=== PATIENT | male | born 1955 | race Caucasian/White ===

== ENCOUNTER → 2016-06-10 | Outpatient (CLI) | payer OTHER ==
[~2016-06-10] MED LIST: ALBUAER19 INH; BRVIN NEB; DOXY100T17 PO; FLUT0.0529 NAE; IBUP-1450 PO; IPRASOL34 INH; LINA1TAB6 PO; LORA-741 PO; LSX/40 PO; MOME50SP5 NAE; OXGN; POTA-327 PO; PRED10TA PO; ROFL1TAB5 PO; SIMV10TA2 PO; SPRIN/30 INH
--- NOTE | 2016-06-10 09:32 | DIAGNOSTIC IMAGING REPORT ---
SINGLE VIEW PELVIS; SINGLE VIEW RIGHT HIP CLINICAL HISTORY: Sacroiliitis. Left hip pain. FINDINGS: An AP view of the pelvis and an AP view of the left hip are obtained. Correlation is made with pelvic CT dated 02/10/2015. The skeletal structures are well mineralized. No fracture is identified in the hips or bony pelvis. Mild arthritic change is present in both hips, with mild joint space narrowing. Minimal bony overgrowth and sclerosis is noted along the acetabular roof. Small spurs are noted in the left femoral head. Mild degenerative sclerosis is seen in the sacroiliac joints and pubic symphysis. Small enthesophytes arise from the anterior superior iliac spine bilaterally. The overlying soft tissues are normal as visualized. There is a nonobstructed abdominal bowel gas pattern. Surgical clips and suture material are noted in the right lower quadrant. Vascular calcifications are present in the pelvis. IMPRESSION: Mild degenerative change as above with no acute bony abnormality seen in the hips or pelvis. Electronically signed by: Magan Agarwal M.D. 06/10/2016 9:31 AM Dictated Date/Time: 06/10/2016 9:28 AM
[2016-06-10 10:23] LABS: ALT/SGPT 34 U/L (12-78); AST/SGOT 19 U/L (15-37); BLOOD UREA NITROGEN 18 mg/dl (7-18); BUN/CREATININE RATIO 19.7 (10-20); CALCIUM 9.1 mg/dl (8.5-10.1); CARBON DIOXIDE 30 mmol/L (21-32); CHLORIDE 106 mmol/L (98-107); CHOLESTEROL 164 mg/dl (0-200); CREATININE 0.89 mg/dl (0.60-1.40); GLUCOSE 134 mg/dl (70-99); POTASSIUM 4.6 mmol/L (3.5-5.1); SODIUM 142 mmol/L (136-145)
[2016-06-10 10:24] LABS: ESTIMATED AVERAGE GLUCOSE 134 mg/dl; HA1C FLAG Normal (Normal)
[2016-06-10 10:34] LABS: CHOLESTEROL/HDL RATIO 3.9; HDL CHOLESTEROL 42 mg/dl; LDL CHOLESTEROL CALCULATED 98 mg/dl; THYROID STIMULATING HORMONE 0.604 uIu/ml (0.300-4.500); TRIGLYCERIDES 119 mg/dl (0-150); VERY LOW DENSITY LIPOPROT CALC 24 mg/dl
[2016-06-10 10:51] LABS: RATIO 32.4 mcg/mg (0-30.0)
== END | disposition home or self-care (01) ==
LOC: C.RAD1850 09:07
PROVIDERS: ATTEND Internal Medicine
DX: M46.1 Sacroiliitis, not elsewhere classified (principal); E11.9 Type 2 diabetes mellitus without complications; E78.5 Hyperlipidemia, unspecified

== ENCOUNTER → 2017-06-10 | Outpatient (CLI) | payer OTHER ==
--- NOTE | 2017-06-10 09:51 | DIAGNOSTIC IMAGING REPORT ---
RIGHT LOWER EXTREMITY VENOUS DOPPLER HISTORY: M79.89 Right leg swelling COMPARISON STUDY: None. FINDINGS: There is normal compressibility, flow, and augmentation within the right lower extremity deep venous system. IMPRESSION: No DVT within the right lower extremity Electronically signed by: Eliseo Ferrara M.D. 06/10/2017 9:49 AM Dictated Date/Time: 06/10/2017 9:44 AM
== END ==
LOC: C.ULTR 09:03
PROVIDERS: ATTEND Internal Medicine
DX: M79.89 Other specified soft tissue disorders (principal)

== ENCOUNTER → 2017-06-10 | Outpatient (CLI) | payer OTHER ==
--- NOTE | 2017-06-10 09:27 | DIAGNOSTIC IMAGING REPORT ---
RIGHT KNEE 3 VIEWS HISTORY: M25.469 Knee [id number] Pain and swelling of right kneerigh COMPARISON: None. FINDINGS: There is no fracture or dislocation. Prepatellar soft tissue swelling. No significant knee effusion. Tiny tricompartmental marginal osteophytes with mild cartilage space narrowing within the medial compartment. This is consistent with osteoarthritis. No radiopaque foreign bodies. IMPRESSION: 1. No fracture or dislocation within the right knee. 2. Prepatellar soft tissue swelling. Electronically signed by: Eliseo Ferrara M.D. 06/10/2017 9:26 AM Dictated Date/Time: 06/10/2017 9:25 AM
== END ==
LOC: C.RAD1850 08:37
PROVIDERS: ATTEND Internal Medicine
DX: M25.461 Effusion, right knee (principal)

== ENCOUNTER → 2017-07-14 | Outpatient (CLI) | payer OTHER ==
[2017-07-14 09:54] LABS: ALT/SGPT 32 U/L (12-78); AST/SGOT 11 U/L (15-37); BLOOD UREA NITROGEN 16 mg/dl (7-18); CALCIUM 8.9 mg/dl (8.5-10.1); CARBON DIOXIDE 32 mmol/L (21-32); CREATININE 0.98 mg/dl (0.60-1.40); GLUCOSE 261 mg/dl (70-99); POTASSIUM 4.5 mmol/L (3.5-5.1); SODIUM 136 mmol/L (136-145)
[2017-07-14 09:57] LABS: CHOLESTEROL 162 mg/dl (0-200); LDL CHOLESTEROL CALCULATED 77 mg/dl
[2017-07-14 10:08] LABS: HEMOGLOBIN A1C 9.8 % (4.5-5.6)
== END | disposition home or self-care (01) ==
LOC: C.LAB1850 08:07
PROVIDERS: ATTEND Internal Medicine
DX: E11.9 Type 2 diabetes mellitus without complications (principal); E78.5 Hyperlipidemia, unspecified

== ENCOUNTER → 2017-08-09 | Outpatient (CLI) | payer OTHER | END | disposition home or self-care (01) | LOC: C.LABSPEC 16:52 | PROVIDERS: ATTEND Surgery | DX: R19.09 Other intra-abdominal and pelvic swelling, mass and lump (principal) ==

== ENCOUNTER → 2017-08-09 | Outpatient (CLI) | payer OTHER | END | disposition home or self-care (01) | LOC: C.PATHSPEC 17:27 | PROVIDERS: ATTEND Surgery | DX: M79.3 Panniculitis, unspecified (principal) ==

== ENCOUNTER → 2017-09-13 | Outpatient (CLI) | payer OTHER | END | disposition home or self-care (01) | LOC: C.LABSPEC 16:47 | PROVIDERS: ATTEND Surgery | DX: A49.02 Methicillin resistant Staphylococcus aureus infection, unspecified site (principal) ==

== ENCOUNTER → 2017-11-17 | Outpatient (CLI) | payer OTHER ==
[2017-11-17 11:20] LABS: HEMOGLOBIN A1C 11.1 % (4.5-5.6)
[2017-11-17 11:34] LABS: BLOOD UREA NITROGEN 18 mg/dl (7-18); CALCIUM 9.6 mg/dl (8.5-10.1); CARBON DIOXIDE 34 mmol/L (21-32); GLUCOSE 331 mg/dl (70-99); POTASSIUM 5.2 mmol/L (3.5-5.1); SODIUM 134 mmol/L (136-145)
[2017-11-17 11:37] LABS: CREATININE RANDOM URINE 51.7 mg/dl
== END | disposition home or self-care (01) ==
LOC: C.LAB1850 08:57
PROVIDERS: ATTEND Internal Medicine Infectious Disease
DX: E11.9 Type 2 diabetes mellitus without complications (principal); A49.02 Methicillin resistant Staphylococcus aureus infection, unspecified site

== ENCOUNTER → 2017-12-11 | Outpatient (CLI) | payer OTHER ==
[~2017-12-11] MED LIST changes: +ALBU18002 INH; +CLB/200 PO; -FLUT0.0529 NAE; -IBUP-1450 PO; -IPRASOL34 INH; -MOME50SP5 NAE; -POTA-327 PO; -SPRIN/30 INH; +UMEC1AER INH
[2017-12-11 11:20] LABS: BASO % 0.3 %; BASO ABS # 0.02 K/uL (0-0.2); EOS % 1.9 %; EOS ABS # 0.11 K/uL (0-0.5); HEMATOCRIT 43.9 % (42-52); HEMOGLOBIN 15.1 g/dL (14.0-18.0); IG# 0.04 K/uL (0.00-0.02); LYMPH % 19.3 %; LYMPH ABS # 1.12 K/uL (1.2-3.4); MEAN CELL VOLUME 84.4 fL (80-100); MEAN CORPUSCULAR HGB CONC 34.4 g/dl (32-36); MEAN PLATELET VOLUME 10.4 fL (7.4-10.4); MONO % 13.1 %; MONO ABS # 0.76 K/uL (0.11-0.59); NEUT % 64.7 %; NEUT ABS # 3.76 K/uL (1.4-6.5); PLATELET COUNT 201 K/uL (130-400); RED CELL DISTRIBUTION WIDTH CV 12.8 % (11.5-14.5); RED CELL DISTRIBUTION WIDTH SD 38.8 fL (36.4-46.3); WHITE BLOOD COUNT 5.81 K/uL (4.8-10.8)
[2017-12-11 11:27] LABS: ALBUMIN 3.9 gm/dl (3.4-5.0); BLOOD UREA NITROGEN 12 mg/dl (7-18); CALCIUM 9.4 mg/dl (8.5-10.1); CARBON DIOXIDE 30 mmol/L (21-32); CREATININE 0.83 mg/dl (0.60-1.40); GLUCOSE 141 mg/dl (70-99); POTASSIUM 4.5 mmol/L (3.5-5.1); SODIUM 139 mmol/L (136-145)
[2017-12-11 11:35] LABS: PTT PATIENT 25.9 SECONDS (21.0-31.0)
[2017-12-11 11:36] LABS: HEMOGLOBIN A1C 10.5 % (4.5-5.6)
== END | disposition home or self-care (01) ==
LOC: C.CPL 10:08
PROVIDERS: ATTEND Orthopaedic Surgery
DX: Z01.810 Encounter for preprocedural cardiovascular examination (principal); Z01.812 Encounter for preprocedural laboratory examination

== ENCOUNTER 2018-11-01 11:19 | Inpatient (IN) ==
--- NOTE | 2018-10-03 08:33 | PAT Medication Instructions ---
Medication Instructions Date of Service October 03, 2018 Home Medications Medication Instructions Recorded tamsulosin 0.4 mg PO HS #30 cap 04/23/18 Anoro Ellipta 1 inh INHALATION QPM Brovana 2 ml INHALATION Q4H PRN Daliresp 500 mcg PO QPM albuterol sulfate [ProAir HFA] 2 puff INHALATION QID PRN albuterol sulfate [Ventolin HFA] 2 puff INHALATION BID PRN lorazepam [Ativan] 0.5 mg PO BID PRN simvastatin [Zocor] 10 mg PO QPM Jentadueto 1 tab PO BID tamsulosin 0.4 mg PO HS hydrocodone-acetaminophen 1 tab PO Q8H PRN DO NOT take the morning of surgery Jentadueto 1 tab PO BID Take morning of surgery With a small sip of water, OTHERWISE NOTHING TO EAT OR DRINK AFTER MIDNIGHT: Brovana 2 ml INHALATION Q4H PRN (if needed) albuterol sulfate [ProAir HFA] 2 puff INHALATION QID PRN (if needed, and bring with you to the hospital) albuterol sulfate [Ventolin HFA] 2 puff INHALATION BID PRN (if needed) lorazepam [Ativan] 0.5 mg PO BID PRN (if needed) hydrocodone-acetaminophen 1 tab PO Q8H PRN (if needed, may be taken up to four hours before surgery) Take evening before surgery Anoro Ellipta 1 inh INHALATION QPM Brovana 2 ml INHALATION Q4H PRN (if needed) Daliresp 500 mcg PO QPM albuterol sulfate [ProAir HFA] 2 puff INHALATION QID PRN (if needed) albuterol sulfate [Ventolin HFA] 2 puff INHALATION BID PRN (if needed) lorazepam [Ativan] 0.5 mg PO BID PRN (if needed) simvastatin [Zocor] 10 mg PO QPM Jentadueto 1 tab PO BID tamsulosin 0.4 mg PO HS hydrocodone-acetaminophen 1 tab PO Q8H PRN (if needed) Other Notes If you have any questions please call us at [phone] or [phone] or [phone] or [phone]
--- NOTE | 2018-10-03 11:32 | Anesthesiology Consultation ---
Date of Service October 03, 2018 Assessment & Plan (1) Encounter for pre-operative examination: Cardio clearance 10/10/18 = "Patient without active cardiac symptoms. No recent cardiac related hospitalizations. He notes no decline in exercise tolerance or overall functional capacity, actually reporting improved exercise tolerance since March. EKG today reveals normal sinus rhythm at 75 bpm. Options discussed. Risks explained. I see no overt cardiac contraindications to surgery as scheduled." Pulmonology Clearance 10/10/18 = Per [place] Respiratory Failure Index, he has a 0.5 to 4.2% risk for respiratory failure. Per [place] Perioperative Cardiac Risk, he has a 0.56% risk for SD or cardiac arrest. Post operative measures to promote air exchange, including cough, deep breathing techniques and getting out of bed are recommended. Nebs should be offered around the clock along with standard pulmonary measures. Chart Review Chart Review: Acceptable Risk for Surgery and Patient seen in Pre Admission Testing Teaching & Discussion Instructed NPO after midnight before surgery, except medications with 15 cc of water. Medication instructions provided according to the PAT guidelines. History Surgery Operation Date: 11/01/18 07:00 Proposed Procedures p Right Anterior Total Hip Arthroplasty - Eben Sommers DO Height/Weight Height: 5 ft 11.5 in Weight: 82.4 kg Allergies Allergy/AdvReac Type Severity Reaction Status Date / Time No Known Allergies Allergy Verified 09/26/18 11:33 Medications Home Medications Medication Instructions Recorded Confirmed Last Taken Anoro Ellipta 1 inh INHALATION QPM 12/12/17 09/26/18 04/10/18 Brovana 2 ml INHALATION Q4H PRN 12/12/17 09/26/18 04/11/18 18:00 Daliresp 500 mcg PO QPM 12/12/17 09/26/18 04/10/18 09:00 albuterol sulfate [ProAir HFA] 2 puff INHALATION QID PRN 12/12/17 09/26/18 04/11/18 18:00 albuterol sulfate [Ventolin HFA] 2 puff INHALATION BID PRN 12/12/17 09/26/18 04/11/18 18:00 lorazepam [Ativan] 0.5 mg PO BID PRN 12/12/17 09/26/18 04/10/18 simvastatin [Zocor] 10 mg PO QPM 0809/26/18 04/10/18 18:00 Jentadueto 1 tab PO BID 03/13/18 09/26/18 04/10/18 09:00 tamsulosin 0.4 mg PO HS #30 cap 04/23/18 09/26/18 Unknown hydrocodone 5 mg-acetaminophen 325 1 tab PO Q8H PRN #30 tab 10/03/18 Unknown mg tablet Past Medical History Medical History COPD (chronic obstructive pulmonary disease) (Chronic) Emphysema. No recent exacerbations; stable. Anxiety Asthma No recent exacerbations; stable. BPH (benign prostatic hyperplasia) Chronic back pain Chronic respiratory failure Diabetes mellitus, type 2 NIDDM. Patient was initially scheduled for ESTELITA for 01/2018, but was Cx due to A1C of 10.5%. Medical regimen started, A1C reduced to 6.2%. H/O malignant neoplasm of colon s/p hemicolectomy [facility] 2017 Hyperlipidemia On home oxygen therapy 2L O2 daytime plus 3L O2 HS-NC Osteoarthritis Exercise / Class Metabolic Activity III < 4 Walking/Shop/Light housework (Denies SOB or CP with slow walking, does walk 1.5 miles per day on 2L O2 via NC) Past Family History Family History Grandfather Family history of diabetes mellitus paternal Past Surgical History Surgical History History of appendectomy History of arthroscopy LEFT KNEE History of bone graft STERNUM, 2/2 traumatic injury History of colonoscopy W/ POLYPECTOMY Hx of right hemicolectomy Past Anesthesia History No Hx of Anesthesia Complications and No Family Hx of Anesthesia Complications History of PONV No Hx of PONV and No Hx of Motion Sickness Social History Smoking Status: Former smoker tobacco type: cigarettes Do You Dip or Chew Tobacco: No Smoking End Date: QUIT 2009, h/o 2ppd Hx Alcohol Use: No Hx Substance Use: No Review of Systems Pt denies any recent chest pain, shortness of breath above baseline, palpitations, cough, fever or URI. Physical Exam Vital Signs BP: 136/76 P: 75bpm SPO2: 97% on 2L O2 via NC T: 97.9 F R: 16 ENMT Mouth: + dentures and + edentulous Thyromental Distance: < 3.5 Finger Breadths (3) Mallampati Class: I Neck normal visual inspection; neck extension not limited Respiratory Auscultation: + diminished lung sounds (B/L, R >L) Cardiovascular Rate/Rhythm: regular rate and regular rhythm Heart Sounds: no murmur Vessels: no carotid bruit Extremities: no edema Very distant heart sounds. Testing Laboratory Results 10/03/18 11:08 10/03/18 11:08 10/03/18 10/03/18 10/03/18 11:08 11:08 11:08 PT 10.3 INR 1.0 APTT 26.9 Hemoglobin A1c 6.3 H Urine Color Urine Appearance Urine pH Ur Specific [place] Urine Protein Urine Glucose (UA) Urine Ketones Urine Nitrite Ur Leukocyte Esterase Blood Type B Positive Antibody Screen NEGATIVE 10/03/18 Unknown PT INR APTT Hemoglobin A1c Urine Color Yellow Urine Appearance Clear Urine pH 5.0 Ur Specific [place] 1.015 Urine Protein Negative Urine Glucose (UA) Negative Urine Ketones Negative Urine Nitrite Negative Ur Leukocyte Esterase Negative Blood Type Antibody Screen Electrocardiogram Date: 04/22/18 Findings: + ST @ (113) Otherwise normal. *EKG done post-op for hemicolectomy; HR 75bpm at PAT. Echocardiogram Date: 04/20/17 EF: 60-64% Examination is adequate to evaluate the referral indication. The left ventricular cavity size is normal. Moderate concentric LVH. Left ventricular wall motion is normal. No significant valvular disease is present. No evidence of pulmonary hypertension. The inferior vena cava is normal sized. Stress Test Date: 12/07/17 Type: DSE Resting EF: 55-59% Stress echo negative for inducible ischemia. Mild concentric LVH. Grade 1 diastolic dysfunction. No significant valvular heart disease. Normal pulmonary pressures are suggested by 2D echo findings. Pulmonary Function Test Date: 01/23/18 Spirometry revealed very severe obstruction by ATS criteria.Note : If this patient has a clinical diagnosis of COPD, disease would be very severe by GOLD criteria. FVC has decreased and is likely from obstruction but restriction on top of obstruction could not rule out as there was no recorded lung volumes. Compared to the prior study on 10/2013, the FEV1 and FVC have decreased. Other Testing Chest CT 03/30/18 FINDINGS: The lungs are clear. The mediastinal vascular structures are within normal limits. No mediastinal or hilar lymphadenopathy. No pleural effusion or pneumothorax. Limited views of the upper abdomen demonstrate a normal liver and spleen. IMPRESSION: No significant abnormality identified within the chest. No change from the prior studies. No significant adenopathy.
[2018-10-03 12:24] LABS: Basophils # (auto) 0.03 K/uL (0-0.2); Basophils % (auto) 0.5 %; Eosinophils # (auto) 0.18 K/uL (0-0.5); Eosinophils % (auto) 2.8 %; Hematocrit (blood only) 44.8 % (42-52); Hemoglobin 15.1 g/dL (14.0-18.0); Immature Granulocytes # (auto) 0.03 K/uL (0.00-0.02); Immature Granulocytes % (auto) 0.5 %; Lymphocytes # (auto) 1.27 K/uL (1.2-3.4); Lymphocytes % (auto) 19.4 %; Mean Corpuscular Hgb Conc 33.7 g/dL (32-36); Mean Corpuscular Volume 83.3 fL (80-100); Mean Platelet Volume 10.4 fL (7.4-10.4); Monocytes # (auto) 0.77 K/uL (0.11-0.59); Monocytes % (auto) 11.8 %; Neutrophils # (auto) 4.26 K/uL (1.4-6.5); Platelet Count 194 K/uL (130-400); RDW Coefficient of Variation 13.7 % (11.5-14.5); RDW Standard Deviation 41.2 fL (36.4-46.3); Red Blood Count 5.38 M/uL (4.7-6.1); White Blood Count 6.54 K/uL (4.8-10.8)
[2018-10-03 12:32] LABS: Albumin Level 4.1 gm/dl (3.4-5.0); BUN Creatinine Ratio 13.2 (10-20); Calcium 9.8 mg/dl (8.5-10.1); Est GFR (African American) 109.8; Est GFR (Non-African American) 94.8; Potassium 4.7 mmol/L (3.5-5.1)
[2018-10-03 12:35] LABS: Partial Thromboplastin Time 26.9 Seconds (21.0-31.0); Prothrombin Time 10.3 Seconds (9.0-12.0)
[2018-10-03 12:43] LABS: Estimated Average Glucose 134 mg/dl; Hemoglobin A1C 6.3 % (4.5-5.6)
[2018-10-03 12:47] LABS: Appearance Urine Clear (Clear); Bilirubin Urine Negative (Negative); Blood Urine Negative (Negative); Color Urine Yellow; Glucose Urine UA Negative (Negative); Ketones Urine Negative (Negative); Leukocyte Esterase Urine Negative (Negative); Nitrite Urine Negative (Negative); Protein Urine Negative (Negative); Specific Gravity Urine 1.015 (1.000-1.030); Urobilinogen Urine Negative (Negative)
--- NOTE | 2018-10-31 20:30 | History & Physical Report ---
Date of Service October 31, 2018 Assessment & Plan (1) Degenerative joint disease of right hip: I have indicated the patient for right anterior total hip replacement. The risks, benefits and complications of surgery were explained to the patient which include but not limited to infection, acute blood loss, DVT/PE, injury to nerves, vessels, bone, soft tissue, arthrofibrosis, chronic pain, failure of the prosthesis, hip dislocation, leg length discrepancy, need for additional surgery, cardiac and pulmonary events and . The patient wished to proceed with surgery and informed consent was obtained at this time. We will plan for Lovenox post-operatively for DVT prophylaxis. Upon discharge the patient will be discharged home with home health services. Appropriate clearances by PCP, cardio, pulm, onc, uro, recs by gen surg were obtained. History of Present Illness Chief Complaint: Right hip pain/djd Primary Care Provider: Frank Dutta MD The patient is a 63 year old male who presents with complaints of severe right hip pain and DJD. The patient has failed outpatient conservative treatments to this point which included NSAIDs, corticosteroid injection, home exercise/walking program. The patient's pain and limited function have progressed to the point where they severely hinder their activities of daily living and they no longer tolerate exercise programs. They are requesting to proceed with total hip replacement surgery. Allergies Allergy/AdvReac Type Severity Reaction Status Date / Time No Known Drug Allergies Allergy Verified 11/01/18 11:56 Home Medications Home Medications Medication Instructions Recorded Confirmed Type Anoro Ellipta 1 inh INHALATION QPM 12/12/17 11/01/18 History Brovana 2 ml INHALATION Q4H PRN 12/12/17 11/01/18 History Daliresp 500 mcg PO QPM 12/12/17 11/01/18 History albuterol sulfate [ProAir HFA] 2 puff INHALATION QID PRN 12/12/17 11/01/18 History albuterol sulfate [Ventolin HFA] 2 puff INHALATION BID PRN 12/12/17 11/01/18 History lorazepam [Ativan] 0.5 mg PO BID PRN 12/12/17 11/01/18 History simvastatin [Zocor] 10 mg PO QPM 12/12/17 11/01/18 History Jentadueto 1 tab PO BID 03/13/18 11/01/18 History tamsulosin 0.4 mg PO HS #30 cap 04/23/18 11/01/18 Rx hydrocodone 5 mg-acetaminophen 325 1 tab PO Q8H PRN #30 tab 10/24/18 11/01/18 Rx mg tablet Past Med/Surg History Medical History COPD (chronic obstructive pulmonary disease) (Chronic) Emphysema. No recent exacerbations; stable. BPH (benign prostatic hyperplasia) Anxiety Asthma No recent exacerbations; stable. Chronic back pain Chronic respiratory failure Diabetes mellitus, type 2 NIDDM. Patient was initially scheduled for ESTELITA for 01/2018, but was Cx due to A1C of 10.5%. Medical regimen started, A1C reduced to 6.2%. H/O malignant neoplasm of colon s/p hemicolectomy [facility] 2017 Hyperlipidemia On home oxygen therapy 2L O2 daytime plus 3L O2 HS-NC Osteoarthritis Surgical History History of appendectomy History of arthroscopy LEFT KNEE History of bone graft STERNUM, 2/2 traumatic injury History of colonoscopy W/ POLYPECTOMY Hx of right hemicolectomy Family History Grandfather Family history of diabetes mellitus paternal Social History Preferred Language: Czech Communication Ability: Effective Visual Impairment: No Limitations Etymology Professor Required: No Beliefs That Will Affect Care: None marital status: Current Living Situation: Spouse Other Information That Helps Us Care for You: No Feels Safe at Home: Yes Safety Concerns: Feels Safe At This Time Smoking Status: Former smoker Tobacco Type: cigarettes Do You Dip or Chew Tobacco: No Smoking End Date: QUIT 2009, h/o 2ppd Second Hand Exposure: No Hx Alcohol Use: No Hx Substance Use: No Review of Systems Review of Systems: All systems reviewed & are unremarkable except as noted in HPI & below Constitutional: as per Subjective / HPI Physical Exam Physical Exam: RLE NVSI +EHL/FHL/TA/GS SILT grossly, +2 DP pulse, compartments soft NT, limited painful ROM, antalgic gait Constitutional: WD/WN, vitals as above Eyes: PERRL, conjunctivae normal, anicteric sclerae ENMT: external ear and nose normal, oropharynx normal Neck: trachea midline, no thyromegaly Respiratory: normal respiratory effort, lungs clear to auscultation Auscultation: lungs clear to auscultation bilaterally and + diminished lung sounds Cardiovascular: RRR, no murmur, no edema Gastrointestinal (Abdomen): normal bowel sounds, soft, nontender, no hepatosplenomegaly Musculoskeletal: no cyanosis or clubbing, extremities motor strength 5/5 Skin: no rashes, warm and dry Neurologic: patellar DTR's 2+ bilat, sensation intact Psychiatric: A+Ox3, euthymic affect Lymphatic: no cervical or axillary lymphadenopathy Results & Data Diagnostic Findings Multiple views of the hip demonstrates severe DJD with complete loss of the joint space. +osteophytes, +sclerosis, +subchondral cysts.
[~2018-11-01 11:19] MED LIST changes: +ACETAMINOPHEN 500 MG TAB PO SCH; -ALBU18002 INH; -ALBUAER19 INH; -BRVIN NEB; +BUPIVACAINE 0.5 % 5 MG/1 ML PF 10ML VIAL ONE; +CEFAZOLIN 2000MG 2,000 MG/15 ML SYR IV SCH; -CLB/200 PO; +CeleBREX 200 MG CAP PO SCH; -DOXY100T17 PO; +FAMOTIDINE 20 MG TAB PO SCH; +GABAPENTIN 600 MG DOSE PO SCH; +LIDOCAINE HCL 2% 2 ML VIAL/AMP(20MG/ML) INFIL ONE; -LINA1TAB6 PO; -LORA-741 PO; +LR 500ML BOLUS, THEN 15ML/HR IV SCH; -LSX/40 PO; +METOCLOPRAMIDE HCL 10 MG TABLET PO SCH; +MIDAZOLAM HCL 1 MG/ML 2ML VIAL ONE; +ONDANSETRON INJ 2 MG/ML 2 ML VIAL ONE; -OXGN; -PRED10TA PO; +PROPOFOL IV EMULSION 10 MG/ML 20 ML VIAL IV ONE; -ROFL1TAB5 PO; +ROPIVACAINE 0.5% HCL/PF 150 MG, BUPIVACAINE 0.5% MPF 30 ML, EPINEPHrine 30MG/30ML (OR U... INFIL SCH; -SIMV10TA2 PO; +TRANEXAMIC ACID 1,000 MG **IV Intra-op IV SCH; +TRANEXAMIC ACID 1,000 MG **IV Pre-op IV SCH; -UMEC1AER INH; +dexAMETHasone 4 MG TAB PO SCH; +fentaNYL citrate 100 MCG/2 ML VIAL ONE
[2018-11-01] MEDS ORDERED: BACITRACIN INJ 50,000 UNIT VIAL ONE (12:29)
[2018-11-01] MEDS ORDERED: ORTHO JOINT ANESTHETIC ONE (12:29)
--- NOTE | 2018-11-01 12:36 | Anesthesiology Consultation ---
Date of Service November 01, 2018 Assessment & Plan Chart Review Chart Review: Acceptable Risk for Surgery Consults Requested none History Surgery Operation Date: 11/01/18 13:30 Proposed Procedures p Right Anterior Total Hip Arthroplasty - Eben Sommers DO Height/Weight Height: 5 ft 11.5 in Weight: 80.104 kg Allergies Allergy/AdvReac Type Severity Reaction Status Date / Time No Known Drug Allergies Allergy Verified 11/01/18 11:56 Medications Home Medications Medication Instructions Recorded Confirmed Last Taken Anoro Ellipta 1 inh INHALATION QPM 12/12/17 11/01/18 10/31/18 13:00 Brovana 2 ml INHALATION Q4H PRN 12/12/17 11/01/18 10/31/18 16:00 Daliresp 500 mcg PO QPM 12/12/17 11/01/18 10/31/18 19:00 albuterol sulfate [ProAir HFA] 2 puff INHALATION QID PRN 12/12/17 11/01/18 10/31/18 16:00 albuterol sulfate [Ventolin HFA] 2 puff INHALATION BID PRN 12/12/17 11/01/18 10/31/18 16:00 lorazepam [Ativan] 0.5 mg PO BID PRN 12/12/17 11/01/18 10/31/18 19:00 simvastatin [Zocor] 10 mg PO QPM 12/12/17 11/01/18 10/31/18 19:00 Jentadueto 1 tab PO BID 03/13/18 11/01/18 10/31/18 19:00 tamsulosin 0.4 mg PO HS #30 cap 04/23/18 11/01/18 10/31/18 19:00 hydrocodone 5 mg-acetaminophen 325 1 tab PO Q8H PRN #30 tab 10/24/18 11/01/18 Unknown mg tablet Active Medications Generic Name Dose Route Start Last Admin Trade Name Lisa PRN Reason Stop Dose Admin Acetaminophen 1,000 mg 11/01/18 06:00 11/01/18 12:16 Tylenol PO 11/01/18 15:00 1,000 mg PREOP ADINA Administration Celecoxib 200 mg 11/01/18 06:00 11/01/18 12:17 Celebrex PO 11/01/18 15:00 200 mg PREOP ADINA Administration Dexamethasone 8 mg 11/01/18 06:00 11/01/18 12:16 Decadron PO 11/01/18 15:00 8 mg PREOP ADINA Administration Famotidine 20 mg 11/01/18 06:00 11/01/18 12:17 Pepcid PO 11/01/18 15:00 20 mg PREOP ADINA Administration Gabapentin 600 mg 11/01/18 06:00 11/01/18 12:16 Neurontin PO 11/01/18 15:00 600 mg PREOP ADINA Administration Lactated Ringer's 1,000 mls @ 15 mls/hr 11/01/18 06:00 11/01/18 12:20 Lr IV 11/01/18 18:00 15 mls/hr .Q24H ADINA Infusion Metoclopramide HCl 10 mg 11/01/18 06:00 11/01/18 12:17 Reglan PO 11/01/18 15:00 10 mg PREOP ADINA Administration Past Medical History Medical History COPD (chronic obstructive pulmonary disease) (Chronic) Emphysema. No recent exacerbations; stable. BPH (benign prostatic hyperplasia) Anxiety Asthma No recent exacerbations; stable. Chronic back pain Chronic respiratory failure Diabetes mellitus, type 2 NIDDM. Patient was initially scheduled for ESTELITA for 01/2018, but was Cx due to A1C of 10.5%. Medical regimen started, A1C reduced to 6.2%. H/O malignant neoplasm of colon s/p hemicolectomy [facility] 2017 Hyperlipidemia On home oxygen therapy 2L O2 daytime plus 3L O2 HS-NC Osteoarthritis Past Family History Family History Grandfather Family history of diabetes mellitus paternal Past Surgical History Surgical History History of appendectomy History of arthroscopy LEFT KNEE History of bone graft STERNUM, 2/2 traumatic injury History of colonoscopy W/ POLYPECTOMY Hx of right hemicolectomy Social History Smoking Status: Former smoker tobacco type: cigarettes Do You Dip or Chew Tobacco: No Smoking End Date: QUIT 2009, h/o 2ppd Hx Alcohol Use: No Hx Substance Use: No substance use type: does not use Physical Exam Vital Signs Last Vital Signs Temp 36.5 C 11/01/18 12:00 Pulse 91 H 11/01/18 12:00 Resp 20 11/01/18 12:00 BP 152/82 H 11/01/18 12:00 Pulse Ox 97 11/01/18 12:00 Testing Laboratory Results 10/03/18 11:08 10/03/18 11:08 PT 10.3 Seconds (9.0-12.0) 10/03/18 11:08 INR 1.0 (0.9-1.1) 10/03/18 11:08 APTT 26.9 Seconds (21.0-31.0) 10/03/18 11:08 Hemoglobin A1c 6.3 % (4.5-5.6) H 10/03/18 11:08 Urine Color Yellow 10/03/18 Unknown Urine Appearance Clear (Clear) 10/03/18 Unknown Urine pH 5.0 (4.5-7.5) 10/03/18 Unknown Ur Specific [place] 1.015 (1.000-1.030) 10/03/18 Unknown Urine Protein Negative (Negative) 10/03/18 Unknown Urine Glucose (UA) Negative (Negative) 10/03/18 Unknown Urine Ketones Negative (Negative) 10/03/18 Unknown Urine Nitrite Negative (Negative) 10/03/18 Unknown Ur Leukocyte Esterase Negative (Negative) 10/03/18 Unknown Blood Type B Positive 10/03/18 11:08 Antibody Screen NEGATIVE 10/03/18 11:08 10/03/18 Unknown Urine Culture - Final Urine,Clean Catch No growth - less than 1,000 colonies/mL. 11/01/18 12:02 POC Glucose 111 H
[2018-11-01] MEDS ORDERED: ePHEDrine sulfate 50 MG/ML AMP IV PRN (12:38)
[2018-11-01] MEDS ORDERED: ACETAMINOPHEN 1,000 MG/100 ML VIAL IV ONE (12:38)
[2018-11-01] MEDS ORDERED: ATROPINE SULFATE 0.1 MG/ML 10ML SYR IV PRN (12:38)
[2018-11-01] MEDS ORDERED: fentaNYL citrate 100 MCG/2 ML VIAL IV PRN (12:38)
[2018-11-01] MEDS ORDERED: HYDROmorphone INJ 1 MG/ML SYRINGE IV PRN (12:38)
--- NOTE | 2018-11-01 12:38 | History & Physical Bridge Note ---
Date of Service November 01, 2018 History & Physical Bridge Note I have examined the patient, reviewed the History & Physical and in the interval since the performance of the History & Physical I have noted the following changes of clinical significance: no changes noted
[2018-11-01] MEDS ORDERED: ePHEDrine sulfate 50 MG/ML SYR ONE (13:46)
[2018-11-01] MEDS ORDERED: PHENYLEPHRINE HCL 10 MG/ML VIAL ONE (13:46)
[2018-11-01] MEDS ORDERED: PHENYLEPHRINE 100MCG/ML 5ML SYR ONE (13:46)
[2018-11-01] MEDS ORDERED: ESMOLOL HCL INJ 10 MG/ML 10ML VIAL IV ONE (13:55)
--- NOTE | 2018-11-01 14:26 | Post Operative Brief Note ---
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 I was immediately available: during the entire case. Back up surgeon: was not required during procedure.
--- NOTE | 2018-11-01 14:36 | Fluoroscopy Report ---
FL hip RT 1V HISTORY: 63 years-old Male RT ANTERIOR HIP right hip total joint arthroplasty COMPARISON: None available TECHNIQUE: 2 spot fluoroscopic images of the right hip were obtained utilizing 56.3 seconds fluorosco py time FINDINGS: Right hip total joint arthroplasty appears to be in satisfactory positioning. No acute fracture or re tained foreign body identified. Moderate to severe left hip osteoarthritis. IMPRESSION: Fluoroscopic assistance as above. Please see operative report for further details. The above report was generated using voice recognition software. It may contain grammatical, syntax o r spelling errors. Electronically signed by: Ray Gant M.D. 11/01/2018 2:35 PM
--- NOTE | 2018-11-01 15:20 | Anesthesiology Progress Note ---
Date of Service November 01, 2018 Anesthesia Post Procedure Vital Signs Vital Signs: Temp Pulse Pulse Resp BP Pulse Ox 11/01/18 15:15 36.7 C 90 20 106/68 98 11/01/18 15:05 97 H 19 122/76 96 11/01/18 14:58 36.2 C L 99 H 12 117/68 94 11/01/18 12:00 36.5 C 91 H 20 152/82 H 97 Pain Intensity Right Hip: Pain Intensity: 5 Transfer of Care Handoff Completed per policy Notes Mental Status: alert / awake / arousable and participated in evaluation Patient Amnestic to Procedure: Yes Nausea / Vomiting: adequately controlled Pain: adequately controlled Airway Patency, RR, SpO2: stable & adequate BP & HR: stable & adequate Hydration State: stable & adequate Neuraxial Anesthesia: was administered and sensory block is resolving Anesthetic Complications: no major complications apparent
--- NOTE | 2018-11-01 15:24 | XRay Report ---
AP PELVIS, CROSSTABLE LATERAL RIGHT HIP History: Right total hip arthroplasty. Degenerative arthritis. Postop. FINDINGS: The patient is status post a right total hip arthroplasty. The hardware is intact. No fract ure or dislocation. Moderate left hip osteoarthritis.. IMPRESSION: Right total hip arthroplasty. No evidence for hardware complication Electronically signed by: Eliseo Ferrara M.D. 11/01/2018 3:22 PM
[2018-11-01] MEDS ORDERED: NALOXONE HCL 0.4 MG/1 ML VIAL/CARP IV PRN (15:37)
[2018-11-01] MEDS ORDERED: ALBUTEROL HFA 8 GM INHALER INH PRN ×2 (15:37→16:00)
[2018-11-01] MEDS ORDERED: LORazepam 0.5 MG TAB PO PRN (15:37)
[2018-11-01] MEDS ORDERED: MAGNESIUM HYDROXIDE SUSP 30 ML UDC PO PRN (15:37)
[2018-11-01] MEDS ORDERED: BISACODYL 10 MG SUPP PR PRN (15:37)
[2018-11-01] MEDS ORDERED: METOCLOPRAMIDE HCL INJ 5 MG/ML 2 ML VIAL IV PRN (15:37)
[2018-11-01] MEDS ORDERED: ONDANSETRON INJ 2 MG/ML 2 ML VIAL IV PRN (15:37)
[2018-11-01] MEDS ORDERED: PHARMACY GLYCEMIC MGMT CONSULT PRN (15:37)
[2018-11-01] MEDS ORDERED: CARBOHYDRATES FOR HYPOGLYCEMIA PO PRN (16:00)
[2018-11-01] MEDS ORDERED: GLUCOSE 40% GEL 15 GM TUBE PO PRN (16:00)
[2018-11-01] MEDS ORDERED: GLUCOSE 10 TABS/TUBE PO PRN (16:00)
[2018-11-01] MEDS ORDERED: DEXTROSE 50% 50 ML SYRINGE IV PRN (16:00)
[2018-11-01] MEDS ORDERED: GLUCAGON FOR INJ 1 MG VIAL IM PRN (16:00)
[2018-11-01] MEDS ORDERED: INSULIN ASPART 100 UNITS/ML 3 ML PEN SC SCH (16:30)
[2018-11-01] MEDS ORDERED: NovoLIN-N (NPH) PER UNIT CHARGE SQ ONE (16:30)
[2018-11-01] MEDS: OXYCODONE HCL IR 5 MG TAB (IMMEDIATE RELEASE) PO PRN ×2 (16:50→21:01)
--- NOTE | 2018-11-01 18:14 | Orthopedic Progress Note ---
Date of Service November 01, 2018 Assessment & Plan (1) Degenerative joint disease of right hip: s/p Right anterior ESTELITA -ancef x 24 -DVT ppx: SCDs, TEDs, Lovenox daily -WBAT RLE -PT/OT -PO XR demonstrtes a well aligned well fixed prosthesis without fracture/dislocation -am labs -DC planning - home with HH Subjective Post Operative Progress Note Patient seen in PACU, comfortable, denies complaints, pain well controlled, no acute issues. Review of Systems Constitutional: as per Subjective / HPI Physical Exam Physical Exam: RLE NVSI +EHL/FHL/TA/GS SILT grossly, +2 DP pulse, compartments soft NT, dressing cdi. Constitutional: WD/WN, vitals as above Results & Data Vital Signs (Past 12 Hours) Vital Signs Temp Pulse Pulse Resp BP Pulse Ox 11/01/18 17:27 36.3 C L 91 H 17 131/75 94 11/01/18 16:40 36.4 C L 91 H 17 115/72 97 11/01/18 16:03 36.3 C L 92 H 18 110/68 94 11/01/18 15:37 36.6 C 97 H 16 111/67 97 11/01/18 15:15 36.7 C 90 20 106/68 98 11/01/18 15:05 97 H 19 122/76 96 11/01/18 14:58 36.2 C L 99 H 12 117/68 94 11/01/18 12:00 36.5 C 91 H 20 152/82 H 97
--- NOTE | 2018-11-01 18:49 | Hospitalist Consultation ---
Date of Consultation November 01, 2018 Assessment & Plan (1) Diabetes mellitus, type 2: Patient's oral hypoglycemic agents will be held he will be put on insulin sliding scale no basal rate unless needed (2) COPD (chronic obstructive pulmonary disease): Patient is return in his home inhaled medications (3) BPH (benign prostatic hyperplasia): Continue tamsulosin is no lower urinary tract symptoms History of Present Illness Attending Physician: Eben Sommers DO History of Present Illness Patient is here postop right hip replacement he has been doing well as an outpatient since his last evaluation by me which was March where he had enterococcal UTI associate with catheterization for colon resection from colon cancer. Allergies Allergy/AdvReac Type Severity Reaction Status Date / Time No Known Drug Allergies Allergy Verified 11/01/18 11:56 Home Medications Home Medications Medication Instructions Recorded Confirmed Type Anoro Ellipta 1 inh INHALATION QPM 12/12/17 11/01/18 History Brovana 2 ml INHALATION BID 12/12/17 11/01/18 History Daliresp 500 mcg PO QPM 12/12/17 11/01/18 History albuterol sulfate [ProAir HFA] 2 puff INHALATION QID PRN 12/12/17 11/01/18 History albuterol sulfate [Ventolin HFA] 2 puff INHALATION BID PRN 12/12/17 11/01/18 History lorazepam [Ativan] 0.5 mg PO BID PRN 12/12/17 11/01/18 History simvastatin [Zocor] 10 mg PO QPM 12/12/17 11/01/18 History Jentadueto 1 tab PO BID 03/13/18 11/01/18 History tamsulosin 0.4 mg PO HS #30 cap 04/23/18 11/01/18 Rx hydrocodone 5 mg-acetaminophen 325 1 tab PO Q8H PRN #30 tab 10/24/18 11/01/18 Rx mg tablet Patient History Medical History COPD (chronic obstructive pulmonary disease) (Chronic) Emphysema. No recent exacerbations; stable. BPH (benign prostatic hyperplasia) Anxiety Asthma No recent exacerbations; stable. Chronic back pain Chronic respiratory failure Diabetes mellitus, type 2 NIDDM. Patient was initially scheduled for ESTELITA for 01/2018, but was Cx due to A1C of 10.5%. Medical regimen started, A1C reduced to 6.2%. H/O malignant neoplasm of colon s/p hemicolectomy [facility] 2017 Hyperlipidemia On home oxygen therapy 2L O2 daytime plus 3L O2 HS-NC Osteoarthritis Surgical History History of appendectomy History of arthroscopy LEFT KNEE History of bone graft STERNUM, 2/2 traumatic injury History of colonoscopy W/ POLYPECTOMY Hx of right hemicolectomy Family History Grandfather Family history of diabetes mellitus paternal Social History Preferred Language: Citizen Of [place] Communication Ability: Effective Visual Impairment: No Limitations Rn Supplemental Required: No Beliefs That Will Affect Care: None marital status: Current Living Situation: Spouse Other Information That Helps Us Care for You: No Feels Safe at Home: Yes Safety Concerns: Feels Safe At This Time Smoking Status: Former smoker Tobacco Type: cigarettes Do You Dip or Chew Tobacco: No Smoking End Date: QUIT 2009, h/o 2ppd Second Hand Exposure: No Hx Alcohol Use: No Hx Substance Use: No Review of Systems Review of Systems: ROS: well nourished well developed. No double vision blurry vision No problems with speech or swallowing No palpitations, chest pain or pressure No Wheezing or breathing issues his breathing has been good of late No abdominal pain nausea vomiting diarrhea changes in appetite or weight No burning urine urine frequency or changes in color Continues with only minor right hip and anterior thigh pain No skin rashes or oral lesions No unusual bruising or bleeding No focused back pain or numbness or loss of strength No changes in memory or confusion Physical Exam Physical Exam: The patient appeared well nourished and normally developed. Vital signs as documented. Head exam is unremarkable. normocephalic, atraumatic Neck is without jugular venous distension, thyromegaly, or lymphademopathy Lungs are clear to auscultation and percussion. He does have poor air movement but no wheezes Cardiac exam reveals Rhythm is regular. First and second heart sounds normal. Abdominal exam reveals normal bowel sounds, no masses, no organomegaly Extremities are nonedematous and both pedal pulses are present dressing is clean dry and intact in his right hip there is no ecchymosis or swelling Neurologic exam is A&Ox3, no focal deficits, strength is equal bilateral Psychologically seems neither anxious or depressed Skin is warm Dry without bruises or lesions except for right hip surgical incision Results & Data Vital Signs (Past 12 Hours) Vital Signs Temp Pulse Pulse Resp BP Pulse Ox 11/01/18 18:40 36.4 C L 76 16 123/72 96 11/01/18 17:27 36.3 C L 91 H 17 131/75 94 11/01/18 16:40 36.4 C L 91 H 17 115/72 97 11/01/18 16:03 36.3 C L 92 H 18 110/68 94 11/01/18 15:37 36.6 C 97 H 16 111/67 97 11/01/18 15:15 36.7 C 90 20 106/68 98 11/01/18 15:05 97 H 19 122/76 96 11/01/18 14:58 36.2 C L 99 H 12 117/68 94 11/01/18 12:00 36.5 C 91 H 20 152/82 H 97 PG Care Time/CCT Total # of Minutes Spent Total Time Spent with Patient: Total time spent is greater than 50% in coordination of care (as documented) at patient's floor/unit and/or counseling patient:
--- NOTE | 2018-11-01 19:19 | Pharmacy Report ---
Glycemic Control Consultation - Date of Service November 01, 2018 - Scope Scope: Glycemic Pharmacist consulted by Dr Sommers on 11/01/18 for glycemic control and to write orders per [facility] inpatient glycemic control protocol - Objective Weight: 80.104 kg Accuchecks BSG (last 24hrs): 11/01/18 11/01/18 11/01/18 12:02 14:59 16:48 POC Glucose 111 H 139 H 139 H HbA1c: Hemoglobin A1c 6.3 % (4.5-5.6) H 10/03/18 11:08 - Recent Pertinent Medications Outpatient Anti-diabetic Regimen: * Jentadueto (linagliptin-metformin) 1 tab BID Risk Factors for Insulin Resistance: * Steroids: dexamethasone 8 mg orally pre-op + dexamethasone 4 mg topically * Recent Surgery: POD 0 * Diet: T2DM - Assessment & Plan Assessment & Plan: ASSESSMENT: * Mr Barcenas is a 63 y/o M with a PMH of well controlled T2DM on orals who presents for R hip surgery. He received oral steroids prior to surgery and also topical. Give NPH weight-based stress of 2 to cover spikes from oral dexamethasone. No other basal insulin at this time as the patient has residual pancreatic function. * For Novolog, weight-based stress of 3 chosen for now secondary to steroid administration. Loosen in subsequent days. * ADA & AACE recommend a goal blood sugar range 140-180 mg/dl for the majority of critically ill & non-critically ill patients. However, more stringent targets may be selected in individual cases. Will utilize more stringent goal of 110-140mg/dl based on patient age & comorbidities. Additionally, tighter glycemic control is warranted to facilitate wound healing * Pt is maintained on oral antidiabetic agents as an outpatient * Oral agents are not recommended for inpatient use d/t drug interactions, changing PO intake, and difficulty titrating for acute hyper/hypoglycemia. ADA recommends re-initiating outpatient oral agents 1-2 days prior to discharge if/when appropriate if they were held on admission. * Will hold oral agents for admission and utilize SQ basal bolus insulin regimen which is the recommended regimen for inpatient glycemic control. * Will initiate weight based insulin dosing for insulin roseanna patient and titrate based on BSG trends. PLAN FOR INPATIENT GLYCEMIC CONTROL: * Holding outpatient oral diabetes medications * Basal insulin * NPH 30 units SQ x 1 * Bolus insulin * NovoLog per scale ACHS or Q6hrs while NPO * Goal Range: Low 110 mg/dL - High 140 mg/dL * Correction Factor: 20 mg/dL/unit * Nutritional / Prandial insulin per carb ratio of 1 unit per 7 grams CHO consumed OUTPATIENT RECOMMENDATIONS * continue home regimen on discharge Thank you.
--- NOTE | 2018-11-01 19:25 | Operative Report ---
Post Operative Report Pre & Post Diagnosis Operation Date: 11/01/18 13:30 Pre-Op Diagnosis: Unilateral Primary Osteoarthritis, Right Hip Post-Op Diagnosis: Unilateral Primary Osteoarthritis, Right Hip Procedure Operation Date: 11/01/18 13:30 Actual Procedures p Right Anterior Total Hip Arthroplasty(Right) - Eben Sommers DO Surgeon Eben Sommers DO [place] Mg Dyer Estimated Blood Loss 115 Findings Consistent with Post-Op Diagnosis Specimens femoral head Anesthesia Type Spinal MAC Complications none Disposition Disposition: Recovery Room Indications The patient is a 63-year-old male who presents with severe progressive right hip DJD who has failed outpatient conservative treatments. I indicated the patient for a anterior total hip replacement and the risks and benefits were explained in detail which include but not limited to infection, bleeding, blood clot, damage to surrounding bone, nerves, vessels, soft tissue, hip dislocation, failure of the prosthesis, leg length discrepancy, need for additional surgery and . The patient agreed to proceed with replacement of the hip and informed consent was obtained. Appropriate clearances were obtained. Description of Procedure COMPONENTS USED: [employer] hip system: Acetabulum size 54, femur size 12 high offset, femoral head 36-3, liner 5436, acetabular screw 25 mm x 1. DESCRIPTION OF PROCEDURE: Following satisfactory spinal anesthesia, the patient was placed supine on the OR table. The left leg was placed in the well leg deras and the right leg in the traction device. The right leg was prepared with ChloraPrep and draped sterilely. A surgical timeout was performed, patient identified and site dinorah verified. Appropriate antibiotics were given. A standard anterior approach in the interval between the sartorius and tensor muscles was performed. Dissection was carried down through subcutaneous tissues. Electrocautery was utilized for hemostasis. Circumflex femoral vessels were identified, tied and ligated. The anterior capsular fat pad was removed and the capsulotomy was performed revealing the arthritic femoral neck and head. A femoral neck cut was made with reciprocating saw and the bone fragments removed. The acetabular self-retraining retractor was placed. Acetabular reaming was completed under fluoroscopic guidance, a 54 shell was impacted into an anatomic position and secured with a dome screw. Local anesthetic was placed and following irrigation, the polyethylene liner was placed. The femur was placed into position of external rotation, extension and adduction. Femoral canal was prepared up to the size 12 high offset. Trial reduction with a -3 neck length head showed good soft tissue tension, leg lengths restored, and good fit and fill of the proximal canal using fluoroscopic landmarks. The hip was dislocated. The trial component was removed. The final implant was placed. The hip was irrigated with sterile saline solution and reduced. A Betadine soak was performed. After 3 minutes, the hip was once more irrigated with copious sterile saline solution with bacitracin. Mehnaz-incisional soft tissue was injected utilizing [place] [employer] which includes a combination of Ropivicaine 0.5% 150mg, Bupivicaine 0.5%/Epinephrine 1:200,000 30ml, Toradol 30mg, Dexamethasone 4mg, Ketamine 10mg, Clonidine 100mcg and NSS 30ml solution. The capsule was then closed with 1-0 Vicryl interrupted figure of eight sutures. The fascia was closed with a running suture of #1 Vicryl, the subcutaneous tissues with 2-0 Vicryl and the skin with a running subcuticular stitch of 3-0 V-Loc. Dermabond prineo and a dry dressing were applied. The patient tolerated the procedure well and was transported to PACU in stable condition. Due to the complex nature of the procedure, the entire surgery was performed with the operational assistance of Mg Dyer PA-C. The commissary assistant, under direct supervision, was involved in the actual performance of all aspects of the surgical procedure including patient positioning, hemostasis, tissue retraction, instrument management and wound closure. I attest to the content of the Intraoperative Record and any orders documented therein. Any exceptions are noted below.
[2018-11-01] MEDS: SODIUM CHLORIDE 0.9% 1000ML 1,000 ML IV SCH (20:07)
[2018-11-01] MEDS: CEFAZOLIN 2000MG 2,000 MG/15 ML SYR IV SCH (20:08)
[2018-11-01] MEDS: SIMVASTATIN 10 MG TAB PO SCH (20:11)
[2018-11-01] MEDS: DOCUSATE SODIUM 100 MG CAP PO SCH (20:11)
[2018-11-01] MEDS: SENNA 8.6 MG TAB PO SCH (20:11)
[2018-11-01] MEDS: TAMSULOSIN HCL 0.4 MG CAP PO SCH (20:11)
[2018-11-01] MEDS: ROFLUMILAST 500 MCG TAB PO SCH (20:11)
[2018-11-01] MEDS: UMECLIDINIUM BRM/VILANTEROL INH SCH (20:12)
[2018-11-01] MEDS: INSULIN ASPART 100 UNITS/ML 3 ML PEN SC SCH (20:56)
[2018-11-01] MEDS ORDERED: UMECLIDINIUM BRM/VILANTEROL INH SCH (21:00)
[2018-11-01] MEDS ORDERED: LINAGLIPTIN METFORMIN PO SCH (21:00)
[2018-11-02] MEDS: ARFORMOTEROL TART 15MCG/2ML VIAL INH SCH ×3 (01:09→19:17)
[2018-11-02] MEDS: OXYCODONE HCL IR 5 MG TAB (IMMEDIATE RELEASE) PO PRN ×4 (01:41→18:09)
[2018-11-02] MEDS: SODIUM CHLORIDE 0.9% 1000ML 1,000 ML IV SCH (03:46)
[2018-11-02] MEDS: CEFAZOLIN 2000MG 2,000 MG/15 ML SYR IV SCH (05:00)
[2018-11-02] MEDS: ACETAMINOPHEN 500 MG TAB PO SCH ×3 (05:11→20:25)
[2018-11-02 06:18] LABS: Basophils # (auto) 0.01 K/uL (0-0.2); Basophils % (auto) 0.1 %; Hematocrit (blood only) 34.9 % (42-52); Hemoglobin 11.4 g/dL (14.0-18.0); Immature Granulocytes # (auto) 0.04 K/uL (0.00-0.02); Immature Granulocytes % (auto) 0.3 %; Lymphocytes # (auto) 0.62 K/uL (1.2-3.4); Lymphocytes % (auto) 4.3 %; Mean Corpuscular Hgb Conc 32.7 g/dL (32-36); Mean Corpuscular Volume 84.7 fL (80-100); Mean Platelet Volume 9.6 fL (7.4-10.4); Monocytes # (auto) 1.34 K/uL (0.11-0.59); Monocytes % (auto) 9.3 %; Platelet Count 254 K/uL (130-400); RDW Standard Deviation 39.8 fL (36.4-46.3); Red Blood Count 4.12 M/uL (4.7-6.1); White Blood Count 14.41 K/uL (4.8-10.8)
[2018-11-02 06:49] LABS: Calcium 8.5 mg/dl (8.5-10.1); Creatinine Clr Calc Pharmacy 89.1 ml/min; Est GFR (African American) 101.6; Est GFR (Non-African American) 87.7
--- NOTE | 2018-11-02 07:34 | Orthopedic Progress Note ---
Date of Service November 02, 2018 Assessment & Plan (1) Degenerative joint disease of right hip: s/p Right anterior ESTELITA POD#1 -ancef x 24 -DVT ppx: SCDs, TEDs, Lovenox daily -WBAT RLE -PT/OT -PO XR demonstrtes a well aligned well fixed prosthesis without fracture/dislocation -am labs - hgb 11.4 -DC planning - home with HH Subjective Post Operative Progress Note Patient seen sittin in chair at bedside, comfortable, denies complaints, pain well controlled, no acute issues. Review of Systems Review of Systems: All systems reviewed & are unremarkable except as noted in HPI & below Constitutional: as per Subjective / HPI Physical Exam Physical Exam: RLE NVSI +EHL/FHL/TA/GS SILT grossly, +2 DP pulse, compartments soft NT, dressing cdi. Constitutional: WD/WN, vitals as above Results & Data Vital Signs (Past 12 Hours) Vital Signs Temp Pulse Resp BP Pulse Ox 11/02/18 07:05 36.6 C 77 16 91/48 L 97 11/02/18 04:00 36.5 C 76 16 132/80 96 11/01/18 23:05 36.4 C L 74 18 110/64 95
[2018-11-02] MEDS: MULTIVITAMIN TAB PO SCH (07:54)
[2018-11-02] MEDS: DOCUSATE SODIUM 100 MG CAP PO SCH ×2 (07:54→20:25)
[2018-11-02] MEDS: ENOXAPARIN INJ 40 MG/0.4 ML SYR SQ SCH (07:55)
[2018-11-02] MEDS ORDERED: NovoLIN-N (NPH) PER UNIT CHARGE SQ ONE (08:30)
[2018-11-02] MEDS: INSULIN ASPART 100 UNITS/ML 3 ML PEN SC SCH ×4 (08:39→21:21)
--- NOTE | 2018-11-02 11:16 | Pharmacy Report ---
Pharmacy Glycemic Short Note 2 - Date of Service November 02, 2018 - Glycemic Short BSG Results (Last 24 hours): 11/01/18 11/01/18 11/01/18 12:02 14:59 16:48 Glucose POC Glucose 111 H 139 H 139 H 11/01/18 11/02/18 11/02/18 20:32 05:48 08:06 Glucose 194 H POC Glucose 185 H 155 H OUTPATIENT ANTIDIABETIC REGIMEN: * Jentadueto (Linagliptin-Metformin) 1 tab PO BID * HbA1c = 6.3% ASSESSMENT: * Patient received total 40 units of insulin yesterday; 30 units of basal (NPH) insulin + 10 units of bolus Novolog insulin. * NPH is given temporarily to help prevent the BSG spikes from the Dexamethasone 8 mg PO prior to surgery. * Fasting BSG = 194 today, NPH 30 units x 1 was given this AM. * Effects of Dexamethasone should wear off today, so Novolog correction factor and carb ratio were loosened starting at lunch. PLAN FOR INPATIENT GLYCEMIC CONTROL: * Hold outpatient oral diabetes medications * Basal insulin * NPH 30 units x 1 today AM. * Bolus insulin * NovoLog per scale ACHS or Q6hrs while NPO * Goal Range: Low 110 mg/dL - High 140 mg/dL * Correction Factor: 30 mg/dL/unit * Nutritional / Prandial insulin per carb ratio of 1 unit per 10 grams CHO consumed PLAN FOR DISCHARGE: * continue home med on discharge.
--- NOTE | 2018-11-02 14:21 | Anesthesiology Progress Note ---
Date of Service November 02, 2018 Anesthesia Post Procedure Vital Signs Vital Signs: Temp Pulse Pulse Resp BP Pulse Ox 11/02/18 09:47 82 16 95 11/02/18 07:05 36.6 C 77 16 91/48 L 97 11/02/18 04:00 36.5 C 76 16 132/80 96 11/01/18 23:05 36.4 C L 74 18 110/64 95 11/01/18 18:40 36.4 C L 76 16 123/72 96 11/01/18 17:27 36.3 C L 91 H 17 131/75 94 11/01/18 16:40 36.4 C L 91 H 17 115/72 97 11/01/18 16:03 36.3 C L 92 H 18 110/68 94 11/01/18 15:37 36.6 C 97 H 16 111/67 97 11/01/18 15:15 36.7 C 90 20 106/68 98 11/01/18 15:05 97 H 19 122/76 96 11/01/18 14:58 36.2 C L 99 H 12 117/68 94 Pain Intensity Right Hip: Pain Intensity: 2 Notes Mental Status: alert / awake / arousable Nausea / Vomiting: adequately controlled Pain: adequately controlled Airway Patency, RR, SpO2: stable & adequate BP & HR: stable & adequate Hydration State: stable & adequate Neuraxial Anesthesia: was administered and sensory block resolved Anesthetic Complications: no major complications apparent and Pt Satisfied with anesthetic care
[2018-11-02] MEDS: ROFLUMILAST 500 MCG TAB PO SCH (20:25)
[2018-11-02] MEDS: SIMVASTATIN 10 MG TAB PO SCH (20:25)
[2018-11-02] MEDS: UMECLIDINIUM BRM/VILANTEROL INH SCH (20:25)
[2018-11-02] MEDS: TAMSULOSIN HCL 0.4 MG CAP PO SCH (20:25)
[2018-11-02] MEDS: SENNA 8.6 MG TAB PO SCH (20:26)
[2018-11-03] MEDS: OXYCODONE HCL IR 5 MG TAB (IMMEDIATE RELEASE) PO PRN ×2 (00:31→07:46)
[2018-11-03 05:45] LABS: Basophils # (auto) 0.01 K/uL (0-0.2); Basophils % (auto) 0.1 %; Eosinophils # (auto) 0.08 K/uL (0-0.5); Eosinophils % (auto) 0.9 %; Hematocrit (blood only) 35.4 % (42-52); Hemoglobin 11.6 g/dL (14.0-18.0); Immature Granulocytes # (auto) 0.03 K/uL (0.00-0.02); Immature Granulocytes % (auto) 0.3 %; Lymphocytes # (auto) 1.59 K/uL (1.2-3.4); Lymphocytes % (auto) 17.3 %; Mean Corpuscular Hgb Conc 32.8 g/dL (32-36); Mean Corpuscular Volume 85.3 fL (80-100); Mean Platelet Volume 9.7 fL (7.4-10.4); Monocytes % (auto) 15.3 %; Neutrophils # (auto) 6.07 K/uL (1.4-6.5); Neutrophils % (auto) 66.1 %; Platelet Count 234 K/uL (130-400); RDW Coefficient of Variation 13.3 % (11.5-14.5); RDW Standard Deviation 41.3 fL (36.4-46.3); Red Blood Count 4.15 M/uL (4.7-6.1); White Blood Count 9.18 K/uL (4.8-10.8)
[2018-11-03 06:12] LABS: BUN Creatinine Ratio 20.8 (10-20); Calcium 8.6 mg/dl (8.5-10.1); Creatinine Clr Calc Pharmacy 93.1 ml/min; Est GFR (African American) 106.2; Est GFR (Non-African American) 91.6; Potassium 3.7 mmol/L (3.5-5.1)
[2018-11-03] MEDS: ACETAMINOPHEN 500 MG TAB PO SCH (06:17)
[2018-11-03 06:31] VITALS: BP 112/66; TEMP 98.1
[2018-11-03] MEDS: ARFORMOTEROL TART 15MCG/2ML VIAL INH SCH (07:13)
[2018-11-03 07:15] VITALS: O2SAT 90
[2018-11-03] MEDS: INSULIN ASPART 100 UNITS/ML 3 ML PEN SC SCH (07:40)
[2018-11-03] MEDS: MULTIVITAMIN TAB PO SCH (07:43)
[2018-11-03] MEDS: ENOXAPARIN INJ 40 MG/0.4 ML SYR SQ SCH (07:43)
[2018-11-03] MEDS: DOCUSATE SODIUM 100 MG CAP PO SCH (07:43)
--- NOTE | 2018-11-03 08:34 | Orthopedic Progress Note ---
Date of Service November 03, 2018 Assessment & Plan (1) Degenerative joint disease of right hip: s/p Right anterior ESTELITA POD#2 -ancef x 24 -DVT ppx: SCDs, TEDs, Lovenox daily -WBAT RLE -PT/OT -PO XR demonstrtes a well aligned well fixed prosthesis without fracture/dislocation -am labs - hgb 11.6 -DC planning - home with POD#1 -ancef x 24 -DVT ppx: SCDs, TEDs, Lovenox daily -WBAT RLE -PT/OT -PO XR demonstrtes a well aligned well fixed prosthesis without fracture/dislocation -am labs - hgb 11.4 -DC planning - home with Subjective Post Operative Progress Note Patient seen sittin in chair at bedside, comfortable, denies complaints, pain well controlled, no acute issues. Review of Systems Review of Systems: All systems reviewed & are unremarkable except as noted in HPI & below Constitutional: as per Subjective / HPI Physical Exam Physical Exam: RLE NVSI +EHL/FHL/TA/GS SILT grossly, +2 DP pulse, compartments soft NT, dressing cdi. Constitutional: WD/WN, vitals as above Results & Data Vital Signs (Past 12 Hours) Vital Signs Temp Pulse Pulse Resp BP Pulse Ox 11/03/18 07:14 81 16 90 11/03/18 06:30 36.7 C 89 16 112/66 100 11/02/18 23:00 36.9 C 86 16 114/66 98
[2018-11-03 09:08] VITALS: PULSE 89
--- NOTE | 2018-11-04 15:14 | Discharge Summary ---
Date of Service November 04, 2018 Admission HPI Per Admitting Provider The patient is a 63 year old male who presents with complaints of severe right hip pain and DJD. The patient has failed outpatient conservative treatments to this point which included NSAIDs, corticosteroid injection, home exercise/walking program. The patient's pain and limited function have progressed to the point where they severely hinder their activities of daily living and they no longer tolerate exercise programs. They are requesting to proceed with total hip replacement surgery. Principal Diagnosis Right anterior total hip replacement Discharge Exam RLE NVSI +EHL/FHL/TA/GS SILT grossly, +2 DP pulse, compartments soft NT, dressing cdi. Constitutional WD/WN, vitals as above Discharge Data Allergies Allergy/AdvReac Type Severity Reaction Status Date / Time No Known Drug Allergies Allergy Verified 11/01/18 11:56 Consultations 11/01/18 15:37 Consult Internal Medicine Routine 11/02/18 08:00 Consult Case Management - Discharge Planning Routine Procedures Performed Operation Date: 11/01/18 13:30 Actual Procedures p Right Anterior Total Hip Arthroplasty(Right) - Eben Sommers DO Ordered Studies 11/01/18 FL fluoroscopy <1hr Routine FL hip RT 1V Routine Hospital Course (1) Degenerative joint disease of right hip: The patient is a 63 -year-old male who presents with long standing history of severe right hip DJD and failed outpatient conservative treatments including NSAIDs, bracing, injections and home walking/exercise program. The patient's symptoms have progressed to the point where it has been difficult to perform even normal activities of daily living. I indicated the patient for a right anterior total hip arthroplasty, the risks, benefits and complications of the procedure include but not limited to infection, bleeding, damage to bone, nerves, vessels, surrounding soft tissue, may develop blood clots, loss of function, leg length discrepancy, dislocation, failure of the components, loosening of the components, the need for additional surgery and . The patient wished to proceed with surgery at this time and informed consent was obtained. Hospital Course: On 11/01/18 the patient was taken to the operating room, adequate anesthesia administered and underwent a right anterior total hip arthroplasty. The patient tolerated the procedure well and was taken to the PACU in stable condition. Post-operatively the patient was started on a DVT ppx medication and given appropriate IV antibiotics. Consults were placed to medical hospitalist, physic al therapy, occupational therapy and case management. On POD#1, the patient did well overnight and their pain was well controlled. Labs were drawn and the Hgb was 11.4. The patient progressed well with PT. Dressings were changed at this time and the incision was clean, dry and intact. On POD#2, the patient continued to progress well with PT. There were no acute issues overnight. Pain well controlled. Labs drawn and hgb 11.6. The patients hospital stay was relatively uneventful and they were deemed stable by the orthopedic team and consultants to be discharged home with on 11/03/18. Discharge Instructions: Upon discharge the patient may weight bear as tolerates through their operative extremity. They were instructed to keep the incision clean and dry at all times. The patient may shower but should not submerge the incision, avoid bathing, pools and hot tubes. The patient was given a script for pain medication and should take as instructed. The patient was given a script for DVT ppx Lovenox 40mg daily and should take as directed. The patient was instructed to not drive or travel for long distances until cleared to do so. If the patient develops any symptoms of fevers, chills, nausea, vomiting, increased redness, swelling, pain or drainage from the surgical site, they should notify the office and/or proceed to the nearest emergency room. The patient should f ollow up in 10-14 days after surgery for their routine post-operative follow-up appointment and should call the office to confirm the date and time. s/p Right anterior ESTELITA POD#2 -ancef x 24 -DVT ppx: SCDs, TEDs, Lovenox daily -WBAT RLE -PT/OT -PO XR demonstrtes a well aligned well fixed prosthesis without fracture/dislocation -am labs - hgb 11.6 -DC planning - home with POD#1 -ancef x 24 -DVT ppx: SCDs, TEDs, Lovenox daily -WBAT RLE -PT/OT -PO XR demonstrtes a well aligned well fixed prosthesis without fracture/dislocation -am labs - hgb 11.4 -DC planning - home with Total Time Total Time Spent Total Time Spent (In Minutes): 45 minutes Total Time Includes: Examination of the Patient, Discharge Planning, Medication Reconciliation and Communication With Other Providers Discharge Plan Discharge Items Patient Disposition: Home - Home Health Services Reason For Visit: Unilateral Primary Osteoarthritis, Right Hip Discharge Diagnosis: Right anterior total hip replacement Condition: Good Discharge Goals: Decrease discomfort, Improve disease control, Improve function and Therapeutic intervention Activity: Per 'Additional Instructions' section Lifting: Wait until after follow-up appointment Bathing Comment: No bathing, pools or hot tubs Sexual Activity: Wait until after follow-up appointment Exercise/Sports: Wait until after follow-up appointment Driving/Machine Use Comment: No driving till cleared by your surgeon Weightbearing: Right weightbearing Non-emergency contact: Primary Care Provider and Surgeon Call non-emergency contact if: you have any medication questions, your symptoms worsen, your pain is not controlled, your pain is worsening, your pain is unusual for you, your pain is concerning for you, you have a fever, your temperature is above 101, your wound has increased redness, your wound has increased drainage and your wound pain has increased Follow-up/Referrals: Frank Dutta MD [Primary Care Provider] - Diet: Carb Consistent or DM2 Addtl Provider Instructions: ACTIVITY RECOMMENDATIONS: SELF CARE INSTRUCTIONS AFTER TOTAL HIP REPLACEMENT : Direct Anterior Approach Until the incision and soft tissues around your hip have healed, there is a possibility that the hip prosthesis could dislocate. A. Hip flexion ( Up & Down out of chair or steps ) may be difficult. This is normal. B. Numbness in front of the thigh is also normal for a few weeks. C. Use hand rails when walking on stairs. D. Wear low heeled shoes with non-slip soles. E. Be sure that your floors are free of things that could trip you - throw rugs, electrical cords, small objects. Avoid wet and waxed floors, especially with crutches and canes. F. Try to walk several times a day with rest periods between. G. Continue with all the exercises taught to you in the hospital. Again, make walking a part of your daily routine. SPECIAL CARE INSTRUCTIONS: VERY IMPORTANT TO READ AND REVIEW A. You may still be at risk for phlebitis and blood clots. 1. Wear surgical stockings (LOKI hose) for 2 weeks after surgery to improve circulation and reduce swelling. 2. Take Lovenox 40mg daily for 4 weeks or as directed by your doctor. This is your blood thinner. 3. High risk patients may be prescribed a stronger blood thinner if necessary. 4. If you are on Coumadin normally, your family doctor/audit reviewer should monitor your blood work. Expect a phone call the day of or the day after bloodwork is drawn to adjust your dosage. B. You must take antibiotics before having dental work, bladder, bowel and other surgery. Your doctor will provide you with a permanent card to carry describing precautions. C. Call [facility] if you have a fever, redness or swelling around the incision, cloudy drainage from incision, or sudden increase in pain in your hip, not relieved by your regular pain medication. D. Please call the office at if you have any concerns or questions about your operation or recovery. * YOU MAY SHOWER, NO TUB BATHS UNTIL CLEARED BY YOUR DOCTOR. - Keep an extra close eye on the top portion of your incision. Be sure to keep clean & dry. * WEAR LOKI HOSE 20 HOURS PER DAY FOR 2 WEEKS. * YOU MAY PROGRESS FROM A WALKER, TO A CANE, TO INDEPENDENT AT YOUR OWN PACE. * MOST PATIENTS WILL HAVE HOME NURSING FOR THERAPY. IF YOU DECIDE TO DO OUTPATIENT PHYSICAL THERAPY, PLEASE SCHEDULE THIS 3 TIMES PER WEEK. * DERMABOND Prineo- This is a mesh tape dressing that is covered with glue. It should remain in place until the incision is properly healed, usually 10-14 days. This dressing is designed to naturally slough off. You may trim the excess mesh tape as it peels off. Incision may be briefly wet in a shower. Dry immediately by blotting with a clean, dry towel. Do not bath or swim until instructed by your doctor. Do not scratch, rub, or pick at the dressing. Do not apply any topical ointments or lotions until dressing is completely removed and/or instructed by your doctor. There may be a small piece of suture material at one end of your incision. Do not pull or trim this. If it is bothersome or catching on clothing, you may cover it with a band-aid. FOLLOW UP VISIT: If appointment is not already scheduled: Please call [facility] to make a follow-up appointment for 2 weeks after your surgery at . Prescriptions: New oxycodone 5 mg Tablet 5 mg PO Q6H MDD 6 tabs PRN (Reason: pain) Qty: 30 RF: 0 sennosides [Senokot] 8.6 mg Tablet 17.2 mg PO HS PRN (Reason: constipation) Qty: 28 RF: 0 acetaminophen [Tylenol Extra Strength] 500 mg Tablet 1,000 mg PO Q8H PRN (Reason: fever or pain) Qty: 90 RF: 0 enoxaparin 40 mg/0.4 mL syringe 40 mg SQ DAILY 28 Days Qty: 11.2 RF: 0 Continued simvastatin [Zocor] 10 mg Tablet 10 mg PO QPM RF: 0 lorazepam [Ativan] 0.5 mg Tablet 0.5 mg PO BID PRN (Reason: Anxiety) RF: 0 albuterol sulfate [ProAir HFA] 90 mcg/actuation Hfa Aerosol Inhaler 2 puff INHALATION QID PRN (Reason: SOB) RF: 0 albuterol sulfate [Ventolin HFA] 90 mcg/actuation Hfa Aerosol Inhaler 2 puff INHALATION BID PRN (Reason: SOB) RF: 0 Brovana 15 mcg/2 mL Solution For Nebulization 2 ml INHALATION BID RF: 0 Daliresp 500 mcg Tablet 500 mcg PO QPM RF: 0 Anoro Ellipta 62.5-25 mcg/actuation Blister With Device 1 inh INHALATION QPM RF: 0 Jentadueto 2.5-1,000 mg Tablet 1 tab PO BID RF: 0 tamsulosin 0.4 mg Capsule 0.4 mg PO HS Qty: 30 RF: 3 Discontinued hydrocodone-acetaminophen 5-325 mg tablet 1 tab PO Q8H PRN (Reason: pain) Qty: 30 RF: 0 Stand[facility]Alone [facility]/Other Patient Handouts: Surgery Prevent DVT After Discharge Orders: Discharge Order (Routine); Ordered 11/03/18 Ordered By: Eben Sommers Admission Data Admit Date/Time: 11/01/18 14:59 Attending Provider: Eben Sommers Admit Provider: Eben Sommers Primary Care Provider: Frank Dutta Other Providers: Cl Baptiste Service: Surgical Services Other Interventions: Discharge Summary Assessment (RN) Last Done: 11/03/18 09:07 DC Date/Time DO NOT enter until pt leaves facility: 11/03/18 10:04
== END 2018-11-03 10:04 | disposition home health service (06) | DRG 470 ==
LOC: ASU 11:19 → 3E 14:59

== ENCOUNTER 2019-02-19 06:07 | Inpatient (IN) ==
--- NOTE | 2019-01-15 15:46 | PAT Medication Instructions ---
Medication Instructions Date of Service January 15, 2019 Home Medications Medication Instructions Recorded acetaminophen [Tylenol Extra 1,000 mg PO Q8H PRN #90 tab 11/01/18 Strength] OneTouch Verio strips #200 ea NS 12/27/18 Anoro Ellipta 1 inh INHALATION QPM albuterol sulfate [ProAir HFA] 2 puff INHALATION QID PRN albuterol sulfate [Ventolin HFA] 2 puff INHALATION BID PRN lorazepam [Ativan] 0.5 mg PO HS simvastatin [Zocor] 10 mg PO QPM acetaminophen [Tylenol Extra Strength] 1,000 mg PO Q8H PRN budesonide 0.25 mg/2 mL suspension for nebulization 0.25 mg INHALATION ONCE PRN ipratropium-albuterol 0.5 mg-3 mg(2.5 mg base)/3 mL nebulization soln 3 ml INHALATION ONCE PRN prednisone 20 mg tablet 20 mg PO DAILY PRN arformoterol 15 mcg/2 mL solution for nebulization 2 ml INHALATION BID linagliptin 2.5 mg-metformin 1,000 mg tablet 1 tab PO BID roflumilast 500 mcg tablet 500 mcg PO QPM tamsulosin 0.4 mg capsule 0.4 mg PO HS escitalopram oxalate [Lexapro] 5 mg PO HS Continue as directed prednisone 20 mg tablet 20 mg PO DAILY PRN "cold symptoms" DO NOT take the morning of surgery linagliptin 2.5 mg-metformin 1,000 mg tablet 1 tab PO BID Take morning of surgery With a small sip of water, OTHERWISE NOTHING TO EAT OR DRINK AFTER MIDNIGHT: albuterol sulfate [ProAir HFA] 2 puff INHALATION QID PRN (if needed) albuterol sulfate [Ventolin HFA] 2 puff INHALATION BID PRN (use if needed; please bring with you to hospital day of surgery if possible) acetaminophen [Tylenol Extra Strength] 1,000 mg PO Q8H PRN (okay to take up to 4 hours prior to surgery if needed) budesonide 0.25 mg/2 mL suspension for nebulization 0.25 mg INHALATION ONCE PRN (if needed) ipratropium-albuterol 0.5 mg-3 mg(2.5 mg base)/3 mL nebulization soln 3 ml INHALATION ONCE PRN (if needed) arformoterol 15 mcg/2 mL solution for nebulization 2 ml INHALATION BID Take evening before surgery Anoro Ellipta 1 inh INHALATION QPM albuterol sulfate [ProAir HFA] 2 puff INHALATION QID PRN (if needed) albuterol sulfate [Ventolin HFA] 2 puff INHALATION BID PRN (if needed) lorazepam [Ativan] 0.5 mg PO HS simvastatin [Zocor] 10 mg PO QPM acetaminophen [Tylenol Extra Strength] 1,000 mg PO Q8H PRN (if needed) budesonide 0.25 mg/2 mL suspension for nebulization 0.25 mg INHALATION ONCE PRN (if needed) ipratropium-albuterol 0.5 mg-3 mg(2.5 mg base)/3 mL nebulization soln 3 ml INHALATION ONCE PRN (if needed) arformoterol 15 mcg/2 mL solution for nebulization 2 ml INHALATION BID linagliptin 2.5 mg-metformin 1,000 mg tablet 1 tab PO BID roflumilast 500 mcg tablet 500 mcg PO QPM tamsulosin 0.4 mg capsule 0.4 mg PO HS escitalopram oxalate [Lexapro] 5 mg PO HS Other Notes If you have any questions please call us at [phone] or [phone] or [phone] or [phone]
--- NOTE | 2019-01-16 09:41 | Anesthesiology Consultation ---
Date of Service January 16, 2019 Assessment & Plan (1) Encounter for pre-operative examination: - Awaiting review preop testing (labs). - Awaiting surgeon-ordered PCP clearance scheduled 01/24 (Dr. Dutta). - Awaiting surgeon-ordered cardiology clearance scheduled 01/22 (Dr. Burk). - Awaiting pulmonary office visit scheduled 02/06 (Karie geronimo). - Check [facility] AM DOS Chart Review Chart Review: Patient seen in Pre Admission Testing Teaching & Discussion Pre-Anesthesia Teaching/Discussion Notes: Instructed NPO after midnight before surgery,except medications with 15 cc of water. Medication instructions provided according to the PAT guidelines. History Surgery Operation Date: 02/19/19 07:15 Proposed Procedures p Left Anterior Total Hip Arthroplasty - Eben Sommers DO Height/Weight Height: 5 ft 11 in Weight: 79.4 kg Allergies Allergy/AdvReac Type Severity Reaction Status Date / Time No Known Drug Allergies Allergy Verified 01/08/19 08:37 Medications Home Medications Medication Instructions Recorded Confirmed Last Taken Anoro Ellipta 1 inh INHALATION QPM 12/12/17 01/08/19 10/31/18 13:00 albuterol sulfate [ProAir HFA] 2 puff INHALATION QID PRN 12/12/17 01/08/19 10/31/18 16:00 albuterol sulfate [Ventolin HFA] 2 puff INHALATION BID PRN 12/12/17 01/08/19 10/31/18 16:00 lorazepam [Ativan] 0.5 mg PO HS 12/12/17 01/08/19 10/31/18 19:00 simvastatin [Zocor] 10 mg PO QPM 12/12/17 01/08/19 10/31/18 19:00 acetaminophen [Tylenol Extra 1,000 mg PO Q8H PRN #90 tab 11/01/18 01/08/19 Unknown Strength] budesonide 0.25 mg/2 mL suspension 0.25 mg INHALATION ONCE PRN ml 11/27/18 01/08/19 Unknown for nebulization ipratropium-albuterol 0.5 mg-3 3 ml INHALATION ONCE PRN ml 11/27/18 01/08/19 Unknown mg(2.5 mg base)/3 mL nebulization soln lancets 33 gauge #100 ea 11/27/18 11/27/18 Unknown prednisone 20 mg tablet 20 mg PO DAILY PRN tab 11/27/18 01/08/19 Unknown arformoterol 15 mcg/2 mL solution 2 ml INHALATION BID 11/28/18 01/08/19 Unknown for nebulization linagliptin 2.5 mg-metformin 1,000 1 tab PO BID tab 11/30/18 01/08/19 Unknown mg tablet roflumilast 500 mcg tablet 500 mcg PO QPM 11/30/18 01/08/19 Unknown tamsulosin 0.4 mg capsule 0.4 mg PO HS cap 11/30/18 01/08/19 Unknown OneTouch Verio strips #200 ea NS 12/27/18 Unknown escitalopram oxalate [Lexapro] 5 mg PO HS 01/08/19 01/08/19 Unknown Past Medical History Medical History Anxiety Chronic obstructive pulmonary disease Chronic prostatitis Hypertension Neuroendocrine tumor s/p resection Sleep apnea Type 2 diabetes mellitus Asthma stable BPH (benign prostatic hyperplasia) Chronic back pain Chronic respiratory failure 2L O2 daytime plus 3L O2 HS-NC Diabetes mellitus, type 2 H/O malignant neoplasm of colon s/p hemicolectomy (2018) Hyperlipidemia Osteoarthritis Exercise / Class Metabolic Activity III < 4 Walking/Shop/Light housework Past Family History Family History Grandfather Family history of diabetes mellitus paternal Mother Alcohol abuse Respiratory disorder Asthma Father Alcohol abuse Brother Alcohol abuse Drug abuse Sister Anxiety Asthma Past Surgical History Surgical History History of appendectomy History of arthroscopy LEFT KNEE History of bone graft STERNUM (2/2 TRAUMA) History of colonoscopy W/ POLYPECTOMY History of total hip arthroplasty Right ESTELITA: 11/01/18: SAB x 1 at L3-L4 at [facility] Hx of right hemicolectomy Past Anesthesia History No Hx of Anesthesia Complications and No Family Hx of Anesthesia Complications History of PONV No Hx of PONV and No Hx of Motion Sickness Social History Smoking Status: Former smoker tobacco type: cigarettes Do You Dip or Chew Tobacco: No Smoking End Date: Quit 2010 Hx Alcohol Use: No Hx Substance Use: No substance use type: does not use Review of Systems Chronic, intermittent wheezing (no recent acute issues). Patient denies chest pain, shortness of breath, reflux, palpitations. Physical Exam Vital Signs VITALS BP 120/78 P 67 TEMP 98.0 SP02 100% on 2L O2 via nasal cannula RESP 20 PHYSICAL Full neck and c-spine range of motion. Full TMJ range of motion. TMD 4 finger breaths Mallampati Score 2 Dentition: dentures upper/lower full Lungs: diminished breath sounds; lower lung base crackles Cardiac: regular rate and rhythm, no murmurs noted Spine: normal Carotid arteries: negative bruit Extremities: no edema Trimmed cash Testing Electrocardiogram Date: 10/10/18 Findings: + NSR @ (75) Echocardiogram Date: 04/20/17 EF: 60-64% The left ventricular cavity size is normal. Moderate concentric LVH. Left ventricular wall motion is normal. No significant valvular disease is present. No evidence of pulmonary hypertension. The inferior vena cava is normal sized. Stress Test Date: 12/07/17 Type: DSE Resting EF: 55-59% Stress echo negative for inducible ischemia. Mild concentric LVH. Grade 1 diastolic dysfunction. No significant valvular heart disease. Normal pulmonary pressures are suggested by 2D echo findings. Pulmonary Function Test Date: 01/23/18 Spirometry revealed very severe obstruction by ATS criteria.Note : If this patient has a clinical diagnosis of COPD, disease would be very severe by GOLD criteria. FVC has decreased and is likely from obstruction but restriction on top of obstruction could not rule out as there was no recorded lung volumes. Compared to the prior study on 10/2013, the FEV1 and FVC have decreased. Other Testing Chest CT: 03/30/18: No significant abnormality in the chest. No significant adenopathy. Lungs are clear. No pleural effusion or pneumothorax.
[2019-01-16 12:16] LABS: Basophils # (auto) 0.02 K/uL (0-0.2); Basophils % (auto) 0.3 %; Eosinophils # (auto) 0.15 K/uL (0-0.5); Hematocrit (blood only) 44.9 % (42-52); Hemoglobin 14.5 g/dL (14.0-18.0); Immature Granulocytes # (auto) 0.03 K/uL (0.00-0.02); Immature Granulocytes % (auto) 0.4 %; Lymphocytes # (auto) 1.11 K/uL (1.2-3.4); Lymphocytes % (auto) 14.5 %; Mean Corpuscular Hemoglobin 27.1 pg (25-34); Mean Corpuscular Hgb Conc 32.3 g/dL (32-36); Mean Corpuscular Volume 83.8 fL (80-100); Mean Platelet Volume 10.5 fL (7.4-10.4); Monocytes # (auto) 0.91 K/uL (0.11-0.59); Monocytes % (auto) 11.9 %; Neutrophils # (auto) 5.43 K/uL (1.4-6.5); Neutrophils % (auto) 70.9 %; Platelet Count 220 K/uL (130-400); RDW Coefficient of Variation 14.3 % (11.5-14.5); RDW Standard Deviation 43.6 fL (36.4-46.3); Red Blood Count 5.36 M/uL (4.7-6.1); White Blood Count 7.65 K/uL (4.8-10.8)
[2019-01-16 12:25] LABS: Albumin Level 4.2 gm/dl (3.4-5.0); BUN Creatinine Ratio 22.2 (10-20); Calcium 9.7 mg/dl (8.5-10.1); Est GFR (Non-African American) 95.7; Potassium 4.7 mmol/L (3.5-5.1)
[2019-01-16 12:29] LABS: Prothrombin Time 10.2 Seconds (9.0-12.0)
[2019-01-16 12:33] LABS: Appearance Urine Clear (Clear); Bilirubin Urine Negative (Negative); Blood Urine Negative (Negative); Color Urine Yellow; Glucose Urine UA Negative (Negative); Ketones Urine Negative (Negative); Leukocyte Esterase Urine Negative (Negative); Nitrite Urine Negative (Negative); Protein Urine Negative (Negative); Specific Gravity Urine 1.025 (1.000-1.030); Urobilinogen Urine Negative (Negative)
[2019-01-16 12:42] LABS: Estimated Average Glucose 120 mg/dl; Hemoglobin A1C 5.8 % (4.5-5.6)
--- NOTE | 2019-02-18 21:29 | History & Physical Report ---
Date of Service February 18, 2019 Assessment & Plan (1) Degenerative joint disease of left hip: I have indicated the patient for left anterior total hip replacement. The risks, benefits and complications of surgery were explained to the patient which include but not limited to infection, acute blood loss, DVT/PE, injury to nerves, vessels, bone, soft tissue, arthrofibrosis, chronic pain, failure of the prosthesis, hip dislocation, leg length discrepancy, need for additional surgery, cardiac and pulmonary events and . The patient wished to proceed with surgery and informed consent was obtained at this time. We will plan for lovenox post-operatively for DVT prophylaxis. Upon discharge the patient will be discharged home with home health services. Appropriate clearances by PCP, cardio, pulm, gen surg, onc and uro were obtained. Patient on home O2 chronically, 2L during day, 3L during night. History of Present Illness Chief Complaint: Left hip pain/djd Primary Care Provider: Frank Dutta MD The patient is a 61 year old male who presents with complaints of severe left hip pain and DJD. The patient has failed outpatient conservative treatments to this point which included NSAIDs, corticosteroid injection, PT/home exercise/walking program. The patient's pain and limited function have progressed to the point where they severely hinder their activities of daily living and they no longer tolerate exercise programs. They are requesting to proceed with total hip replacement surgery. Allergies Allergy/AdvReac Type Severity Reaction Status Date / Time No Known Drug Allergies Allergy Verified 02/19/19 07:15 Home Medications Home Medications Medication Instructions Recorded Confirmed Type Anoro Ellipta 1 inh INHALATION QPM 12/12/17 02/19/19 History albuterol sulfate [ProAir HFA] 2 puff INHALATION QID PRN 12/12/17 02/19/19 History albuterol sulfate [Ventolin HFA] 2 puff INHALATION BID PRN 12/12/17 02/19/19 History acetaminophen [Tylenol Extra 1,000 mg PO Q8H PRN #90 tab 11/01/18 02/19/19 Rx Strength] lancets 33 gauge #100 ea 11/27/18 02/01/19 History prednisone 20 mg tablet 20 mg PO DAILY PRN tab 11/27/18 02/19/19 History arformoterol 15 mcg/2 mL solution 2 ml INHALATION BID 11/28/18 02/19/19 History for nebulization linagliptin 2.5 mg-metformin 1,000 1 tab PO BID tab 11/30/18 02/19/19 History mg tablet roflumilast 500 mcg tablet 500 mcg PO QPM 11/30/18 02/19/19 History tamsulosin 0.4 mg capsule 0.4 mg PO HS cap 11/30/18 02/19/19 History OneTouch Verio strips #200 ea NS 12/27/18 02/01/19 Rx budesonide 0.25 mg/2 mL suspension 0.25 mg INHALATION UD PRN ml 01/22/19 02/19/19 History for nebulization ipratropium-albuterol 0.5 mg-3 3 ml INHALATION UD PRN ml 01/22/19 02/19/19 History mg(2.5 mg base)/3 mL nebulization soln lorazepam 0.5 mg tablet 0.5 mg PO BID tab 01/22/19 02/19/19 History simvastatin 20 mg tablet 20 mg PO QPM 01/22/19 02/19/19 History hydrocodone 5 mg-acetaminophen 325 1 tab PO BID PRN #60 tab 01/23/19 02/19/19 Rx mg tablet Past Med/Surg History Medical History Anxiety Chronic obstructive pulmonary disease Chronic prostatitis Hypertension Neuroendocrine tumor s/p resection Sleep apnea Type 2 diabetes mellitus Asthma stable BPH (benign prostatic hyperplasia) Chronic back pain Chronic respiratory failure 2L O2 daytime plus 3L O2 HS-NC Diabetes mellitus, type 2 H/O malignant neoplasm of colon s/p hemicolectomy (2018) Hyperlipidemia Osteoarthritis Surgical History History of appendectomy History of arthroscopy LEFT KNEE History of bone graft STERNUM (2/2 TRAUMA) History of colonoscopy W/ POLYPECTOMY History of total hip arthroplasty Right ESTELITA: 11/01/18: SAB x 1 at L3-L4 at [facility] Hx of right hemicolectomy Family History Grandfather Family history of diabetes mellitus paternal Mother Alcohol abuse Respiratory disorder Asthma Father Alcohol abuse Brother Alcohol abuse Drug abuse Sister Anxiety Asthma Social History Preferred Language: South Korean Communication Ability: Effective Visual Impairment: No Limitations Hearing Ability: Normal System Designer Required: No Beliefs That Will Affect Care: None marital status: Current Living Situation: Spouse current occupational status: retired Other Information That Helps Us Care for You: No Feels Safe at Home: Yes Safety Concerns: Feels Safe At This Time Smoking Status: Former smoker Tobacco Type: cigarettes ; Do You Dip or Chew Tobacco: No ; Smoking End Date: Quit 2010 ; Second Hand Exposure: No ; Tobacco Cessation Education Requested by Patient: No Hx Alcohol Use: No Hx Substance Use: No Dental Care, Regularly: No Physical Activity Frequency: Does not Exercise Review of Systems Review of Systems: All systems reviewed & are unremarkable except as noted in HPI & below Constitutional: as per Subjective / HPI Physical Exam Physical Exam: LLE NVSI +EHL/FHL/TA/GS SILT grossly, +2 DP pulse, compartments soft NT, limited painful ROM of the hip, antalgic gait. Respiratory: normal respiratory effort, lungs clear to auscultation Auscultation: + diminished lung sounds Cardiovascular: RRR, no murmur, no edema Gastrointestinal (Abdomen): normal bowel sounds, soft, nontender, no hepatosplenomegaly Musculoskeletal: no cyanosis or clubbing, extremities motor strength 5/5 Skin: no rashes, warm and dry Neurologic: patellar DTR's 2+ bilat, sensation intact Psychiatric: A+Ox3, euthymic affect Lymphatic: no cervical or axillary lymphadenopathy Results & Data Diagnostic Findings Multiple views of the hip demonstrates severe DJD with complete loss of the joint space. +osteophytes, +sclerosis, +subchondral cysts.
[~2019-02-19 06:07] MED LIST changes: -BUPIVACAINE 0.5 % 5 MG/1 ML PF 10ML VIAL ONE; -LIDOCAINE HCL 2% 2 ML VIAL/AMP(20MG/ML) INFIL ONE; -MIDAZOLAM HCL 1 MG/ML 2ML VIAL ONE; -ONDANSETRON INJ 2 MG/ML 2 ML VIAL ONE; -PROPOFOL IV EMULSION 10 MG/ML 20 ML VIAL IV ONE; -ROPIVACAINE 0.5% HCL/PF 150 MG, BUPIVACAINE 0.5% MPF 30 ML, EPINEPHrine 30MG/30ML (OR U... INFIL SCH; +ROPIVACAINE 0.5% HCL/PF 150 MG, BUPIVACAINE 0.5% MPF 30 ML, EPINEPHrine 30MG/30ML (OR U... INSTIL SCH; -TRANEXAMIC ACID 1,000 MG **IV Intra-op IV SCH; -TRANEXAMIC ACID 1,000 MG **IV Pre-op IV SCH; +VANCOMYCIN HCL 1,000 MG/270 ML BAG IV SCH; -fentaNYL citrate 100 MCG/2 ML VIAL ONE
[2019-02-19] MEDS ORDERED: BUPIVACAINE 0.5 % 5 MG/1 ML PF 10ML VIAL ONE (06:35)
[2019-02-19] MEDS ORDERED: LIDOCAINE HCL 2% 2 ML VIAL/AMP(20MG/ML) INFIL ONE (07:12)
[2019-02-19] MEDS ORDERED: PROPOFOL IV EMULSION 10 MG/ML 20 ML VIAL IV ONE ×2 (07:12→09:52)
[2019-02-19] MEDS ORDERED: ePHEDrine sulfate 50 MG/ML SYR ONE (07:12)
[2019-02-19] MEDS ORDERED: PHENYLEPHRINE 100MCG/ML 5ML SYR ONE (07:12)
[2019-02-19] MEDS ORDERED: MIDAZOLAM HCL 1 MG/ML 2ML VIAL ONE (07:13)
[2019-02-19] MEDS ORDERED: fentaNYL citrate 100 MCG/2 ML VIAL ONE (07:13)
[2019-02-19] MEDS ORDERED: BACITRACIN INJ 50,000 UNIT VIAL ONE (07:39)
[2019-02-19] MEDS ORDERED: ORTHO JOINT ANESTHETIC ONE (07:39)
[2019-02-19] MEDS ORDERED: TRANEXAMIC ACID 1,000 MG in 0.9 % SODIUM CHLORIDE 100 ML IV ONE ×2 (07:58→07:59)
[2019-02-19] MEDS ORDERED: ePHEDrine sulfate 50 MG/ML AMP IV PRN (08:43)
[2019-02-19] MEDS ORDERED: fentaNYL citrate 100 MCG/2 ML VIAL IV PRN (08:43)
[2019-02-19] MEDS ORDERED: ATROPINE SULFATE 0.1 MG/ML 10ML SYR IV PRN (08:43)
[2019-02-19] MEDS ORDERED: ONDANSETRON INJ 2 MG/ML 2 ML VIAL IV PRN ×2 (08:43→12:40)
--- NOTE | 2019-02-19 08:58 | History & Physical Bridge Note ---
Date of Service February 19, 2019 History & Physical Bridge Note I have examined the patient, reviewed the History & Physical and in the interval since the performance of the History & Physical I have noted the following changes of clinical significance: no changes noted
[2019-02-19] MEDS ORDERED: VANCOMYCIN CONSULT ACTIVE PRN (09:07)
--- NOTE | 2019-02-19 11:10 | Post Operative Brief Note ---
Immediate Post Op Note v1 Date of Surgery February 19, 2019 Pre & Post Diagnosis Operation Date: 02/19/19 09:05 Pre-Op Diagnosis: Unilateral Primary Osteoarthritis, Left Hip Post-Op Diagnosis: Unilateral Primary Osteoarthritis, Left Hip I identified the patient and participated in the time-out.: Yes Procedure Operation Date: 02/19/19 09:05 Actual Procedures p Left Anterior Total Hip Arthroplasty(Left) - Eben Sommers DO Surgeon Eben Sommers DO Strength And Conditioning Coach Mg Dyer Estimated Blood Loss 135 Findings Consistent with Post-Op Diagnosis Fluids 1500 cc LR Specimens femoral head Anesthesia Type Spinal MAC Complications none Disposition Disposition: Recovery Room Overlapping Procedure I was present for: the critical portions of procedure. I was immediately available: during the entire case. Back up surgeon: was not required during procedure.
--- NOTE | 2019-02-19 11:12 | Operative Report ---
Post Operative Report Pre & Post Diagnosis Operation Date: 02/19/19 09:05 Pre-Op Diagnosis: Unilateral Primary Osteoarthritis, Left Hip Post-Op Diagnosis: Unilateral Primary Osteoarthritis, Left Hip I identified the patient and participated in the time-out.: Yes Procedure Operation Date: 02/19/19 09:05 Actual Procedures p Left Anterior Total Hip Arthroplasty(Left) - Eben Sommers DO Surgeon Eben Sommers DO Cable Worker Helper Mg Dyer Estimated Blood Loss 135 Findings Consistent with Post-Op Diagnosis Fluids 1500 cc LR Specimens Femoral head Anesthesia Type Spinal MAC Complications none Disposition Disposition: Recovery Room Indications The patient is a 64-year-old male who presents with severe progressive right hip DJD who has failed outpatient conservative treatments. I indicated the patient for a anterior total hip replacement and the risks and benefits were explained in detail which include but not limited to infection, bleeding, blood clot, damage to surrounding bone, nerves, vessels, soft tissue, hip dislocation, failure of the prosthesis, leg length discrepancy, need for additional surgery and . The patient agreed to proceed with replacement of the hip and informed consent was obtained. Appropriate clearances were obtained. Description of Procedure COMPONENTS USED: [employer] hip system: Acetabulum size 54, femur size 11 high offset, femoral head 36-3, liner [id number], acetabular screw 25 mm x 1. DESCRIPTION OF PROCEDURE: Following satisfactory spinal anesthesia, the patient was placed supine on the OR table. The right leg was placed in the well leg deras and the left leg in the traction device. The left leg was prepared with ChloraPrep and draped sterilely. A surgical timeout was performed, patient identified and site dinorah verified. Appropriate antibiotics were given. A standard anterior approach in the interval between the sartorius and tensor muscles was performed. Dissection was carried down through subcutaneous tissues. Electrocautery was utilized for hemostasis. Circumflex femoral vessels were identified, tied and ligated. The anterior capsular fat pad was removed and the capsulotomy was performed revealing the arthritic femoral neck and head. A femoral neck cut was made with reciprocating saw and the bone fragments removed. The acetabular self-retraining retractor was placed. Acetabular reaming was completed under fluoroscopic guidance, a 54 shell was impacted into an anatomic position and secured with a dome screw. Local ane sthetic was placed and following irrigation, the polyethylene liner was placed. The femur was placed into position of external rotation, extension and adduction. Femoral canal was prepared up to the size 11 high offset. Trial reduction with a -3 neck length head showed good soft tissue tension, leg lengths restored, and good fit and fill of the proximal canal using fluoroscopic landmarks. The hip was dislocated. The trial component was removed. The final implant was placed. The hip was irrigated with sterile saline solution and reduced. A Betadine soak was performed. After 3 minutes, the hip was once more irrigated with copious sterile saline solution with bacitracin. Mehnaz-incisional soft tissue was injected utilizing [place] [employer]omix which includes a combination of Ropivicaine 0.5% 150mg, Bupivicaine 0.5%/Epinephrine 1:200,000 30ml, Toradol 30mg, Dexamethasone 4mg, Ketamine 10mg, Clonidine 100mcg and NSS 30ml solution. The capsule was then closed with 1-0 Vicryl interrupted figure of eight sutures. The fascia was closed with a running suture of #1 Vicryl, the subcutaneous tissues with 2-0 Vicryl and the skin with a running subcuticular stitch of 3-0 V-Loc. Dermabond prineo and a dry dressing were applied. The patient tolerated the procedure well and was transported to PACU in stable condition. Due to the complex nature of the procedure, the entire surgery was performed with the operational assistance of Mg Dyer PA-C. The assistant grocery store manager, under direct supervision, was involved in the actual performance of all aspects of the surgical procedure including patient positioning, hemostasis, tissue retraction, instrument management and wound closure. I attest to the content of the Intraoperative Record and any orders documented therein. Any exceptions are noted below.
--- NOTE | 2019-02-19 11:44 | Fluoroscopy Report ---
FL hip LT 1V CLINICAL HISTORY: Left hip arthroplasty. COMPARISON STUDY: Pelvis radiograph November 01, 2018. FLUOROSCOPY TIME: 1.12 minutes. FLUOROSCOPIC IMAGES: 2 FINDINGS: Alignment of the total left hip arthroplasty is anatomic. No fracture or unexpected radiopa que foreign bodies are noted. There is an acetabular screw. Right hip arthroplasty is also noted. IMPRESSION: Expected findings following total left hip arthroplasty. Electronically signed by: Balwinder Norman M.D. 02/19/2019 11:43 AM
--- NOTE | 2019-02-19 12:05 | Anesthesiology Progress Note ---
Date of Service February 19, 2019 Anesthesia Post Procedure Vital Signs Vital Signs: Temp Pulse Pulse Resp BP BP Pulse Ox 02/19/19 12:00 96 H 18 132/84 94 02/19/19 11:50 90 17 137/77 100 02/19/19 11:40 91 H 17 149/75 H 100 02/19/19 11:33 36.6 C 97 H 16 116/88 100 02/19/19 07:30 36.4 C L 72 20 145/81 H 98 Transfer of Care Handoff Completed per policy Notes Mental Status: alert / awake / arousable and participated in evaluation Nausea / Vomiting: adequately controlled Pain: adequately controlled Airway Patency, RR, SpO2: stable & adequate BP & HR: stable & adequate Hydration State: stable & adequate Neuraxial Anesthesia: was administered and sensory block is resolving Anesthetic Complications: no major complications apparent and Pt Satisfied with anesthetic care
--- NOTE | 2019-02-19 12:26 | XRay Report ---
XR hip 1V LT w pelvis CLINICAL HISTORY: IN PACU - A/P PELVIS and LATERAL HIP joint replacement COMPARISON: 11/01/2018 DISCUSSION: Anatomic alignment posttotal left hip arthroplasty. Could contact between metallic prosth etic and underlying bone. Pre-existing total right hip arthroplasty. Expected postoperative soft tissue edema IMPRESSION: Anatomic alignment posttotal left hip arthroplasty. The above report was generated using voice recognition software. It may contain grammatical, syntax or spelling errors. Electronically signed by: Nadeem Oquendo M.D. 02/19/2019 12:24 PM
[2019-02-19] MEDS ORDERED: ALBUTEROL HFA 8 GM INHALER INH PRN (12:40)
[2019-02-19] MEDS ORDERED: SODIUM CHLORIDE 0.9% 1000ML 1,000 ML IV SCH (12:40)
[2019-02-19] MEDS ORDERED: NON-FORMULARY MEDICATION (Albuterol Hfa 2 PUFFS) INH PRN (12:40)
[2019-02-19] MEDS ORDERED: ALBUT/IPRATROP 3MG/0.5MG NEB 3 ML VIAL INH PRN (12:40)
[2019-02-19] MEDS ORDERED: MAGNESIUM HYDROXIDE SUSP 30 ML UDC PO PRN (12:40)
[2019-02-19] MEDS ORDERED: METOCLOPRAMIDE HCL INJ 5 MG/ML 2 ML VIAL IV PRN (12:40)
[2019-02-19] MEDS ORDERED: HYDROmorphone INJ 0.5 MG/0.5 ML SYR IV PRN (12:40)
[2019-02-19] MEDS ORDERED: BISACODYL 10 MG SUPP PR PRN (12:40)
[2019-02-19] MEDS ORDERED: NALOXONE HCL 0.4 MG/1 ML VIAL/CARP IV PRN (12:40)
[2019-02-19] MEDS ORDERED: PHARMACY GLYCEMIC MGMT CONSULT PRN (12:53)
[2019-02-19] MEDS: INSULIN ASPART 100 UNITS/ML 3 ML PEN SC SCH ×3 (13:45→21:22)
[2019-02-19] MEDS: ACETAMINOPHEN 500 MG TAB PO SCH ×2 (13:46→21:20)
--- NOTE | 2019-02-19 14:02 | Pharmacy Report ---
Glycemic Control Consultation - Date of Service February 19, 2019 - Scope Scope: Glycemic Pharmacist consulted by Dr Sommers on 02/19/19 for glycemic control and to write orders per [facility] inpatient glycemic control protocol - Objective Weight: 79.4 kg Accuchecks BSG (last 24hrs): 02/19/19 02/19/19 02/19/19 07:33 11:39 12:36 POC Glucose 126 H 159 H 170 H HbA1c: Hemoglobin A1c 5.8 % (4.5-5.6) H 01/16/19 09:50 - Recent Pertinent Medications Outpatient Anti-diabetic Regimen: * Linagliptin/metformin 2.5 mg/1000 mg PO BIDM * A1c = 5.8 % (01/16/19) Risk Factors for Insulin Resistance: * Steroids: PO dexamethasone in OR + intra-articular ortho mix * IVF: 0.9% NS @100 ml/hr * Recent Surgery: POD #0 s/p left total hip arthroplasty * Diet: T2DM - Assessment & Plan Assessment & Plan: ASSESSMENT: * FM is a 64 year old male POD #0 s/p left total hip arthroplasty * Patient received 8 mg PO dexamethasone in the OR + intra-articular ortho mix * BSGs so far today ranging 126-170 mg/dL * PMH includes type 2 DM, hyperlipidemia, BPH, asthma, COPD, BETZY, hypertension, anxiety, etc. PLAN FOR INPATIENT GLYCEMIC CONTROL: * Holding outpatient oral diabetes medications * Will hold off on basal insulin for now based on A1c * Bolus insulin * NovoLog per scale ACHS or Q6hrs while NPO * Goal Range: Low 110 mg/dL - High 140 mg/dL * Correction Factor: 20 mg/dL/unit * Nutritional / Prandial insulin per carb ratio of 1 unit per 7 grams CHO c onsumed * Will add one overnight check at 0200 with CF of 25 * Please note that the plan above was derived based on current level of insulin resistance and hospital stress. These recommendations are appropriate for inpatient admission only. Plan of care upon discharge will need to be reassessed to avoid potential outpatient hypo/hyperglycemia. Thank you.
[2019-02-19] MEDS: OXYCODONE HCL IR 5 MG TAB (IMMEDIATE RELEASE) PO PRN ×2 (14:21→20:20)
[2019-02-19] MEDS ORDERED: CARBOHYDRATES FOR HYPOGLYCEMIA PO PRN (15:30)
[2019-02-19] MEDS ORDERED: DEXTROSE 50% 50 ML SYRINGE IV PRN (15:30)
[2019-02-19] MEDS ORDERED: GLUCAGON FOR INJ 1 MG VIAL IM PRN (15:30)
[2019-02-19] MEDS ORDERED: GLUCOSE 10 TABS/TUBE PO PRN (15:30)
[2019-02-19] MEDS ORDERED: GLUCOSE 40% GEL 15 GM TUBE PO PRN (15:30)
--- NOTE | 2019-02-19 15:35 | Hospitalist Consultation ---
Date of Consultation February 19, 2019 History of Present Illness Attending Physician: Eben Sommers DO Allergies Allergy/AdvReac Type Severity Reaction Status Date / Time No Known Drug Allergies Allergy Verified 02/19/19 07:15 Home Medications Home Medications Medication Instructions Recorded Confirmed Type Anoro Ellipta 1 inh INHALATION QPM 12/12/17 02/19/19 History albuterol sulfate [ProAir HFA] 2 puff INHALATION QID PRN 12/12/17 02/19/19 History albuterol sulfate [Ventolin HFA] 2 puff INHALATION BID PRN 12/12/17 02/19/19 History acetaminophen [Tylenol Extra 1,000 mg PO Q8H PRN #90 tab 11/01/18 02/19/19 Rx Strength] lancets 33 gauge #100 ea 11/27/18 02/01/19 History prednisone 20 mg tablet 20 mg PO DAILY PRN tab 11/27/18 02/19/19 History arformoterol 15 mcg/2 mL solution 2 ml INHALATION BID 11/28/18 02/19/19 History for nebulization linagliptin 2.5 mg-metformin 1,000 1 tab PO BID tab 11/30/18 02/19/19 History mg tablet roflumilast 500 mcg tablet 500 mcg PO QPM 11/30/18 02/19/19 History tamsulosin 0.4 mg capsule 0.4 mg PO HS cap 11/30/18 02/19/19 History OneTouch Verio strips #200 ea NS 12/27/18 02/01/19 Rx budesonide 0.25 mg/2 mL suspension 0.25 mg INHALATION UD PRN ml 01/22/19 02/19/19 History for nebulization ipratropium-albuterol 0.5 mg-3 3 ml INHALATION UD PRN ml 01/22/19 02/19/19 History mg(2.5 mg base)/3 mL nebulization soln lorazepam 0.5 mg tablet 0.5 mg PO BID tab 01/22/19 02/19/19 History simvastatin 20 mg tablet 20 mg PO QPM 01/22/19 02/19/19 History hydrocodone 5 mg-acetaminophen 325 1 tab PO BID PRN #60 tab 01/23/19 02/19/19 Rx mg tablet Patient History Medical History Anxiety Chronic obstructive pulmonary disease Chronic prostatitis Hypertension Neuroendocrine tumor s/p resection Sleep apnea Type 2 diabetes mellitus Asthma stable BPH (benign prostatic hyperplasia) Chronic back pain Chronic respiratory failure 2L O2 daytime plus 3L O2 HS-NC Diabetes mellitus, type 2 H/O malignant neoplasm of colon s/p hemicolectomy (2018) Hyperlipidemia Osteoarthritis Surgical History History of appendectomy History of arthroscopy LEFT KNEE History of bone graft STERNUM (2/2 TRAUMA) History of colonoscopy W/ POLYPECTOMY History of total hip arthroplasty Right ESTELITA: 11/01/18: SAB x 1 at L3-L4 at [facility] Hx of right hemicolectomy Family History Grandfather Family history of diabetes mellitus paternal Mother Alcohol abuse Respiratory disorder Asthma Father Alcohol abuse Brother Alcohol abuse Drug abuse Sister Anxiety Asthma Social History Preferred Language: Telugu Communication Ability: Effective Visual Impairment: No Limitations Hearing Ability: Normal Calendering Machine Operator Required: No Beliefs That Will Affect Care: None marital status: Current Living Situation: Spouse current occupational status: retired Other Information That Helps Us Care for You: No Feels Safe at Home: Yes Safety Concerns: Feels Safe At This Time Smoking Status: Former smoker Tobacco Type: cigarettes ; Do You Dip or Chew Tobacco: No ; Smoking End Date: Quit 2010 ; Second Hand Exposure: No ; Tobacco Cessation Education Requested by Patient: No Hx Alcohol Use: No Hx Substance Use: No Dental Care, Regularly: No Physical Activity Frequency: Does not Exercise Results & Data Vital Signs (Past 12 Hours) Vital Signs Temp Pulse Pulse Pulse Resp BP BP 02/19/19 14:30 97 H 16 148/84 H 02/19/19 13:21 98 H 18 147/83 H 02/19/19 12:30 36.6 C 101 H 15 142/78 H 02/19/19 12:10 37.0 C 94 H 20 111/91 02/19/19 12:00 96 H 18 132/84 02/19/19 11:50 90 17 137/77 02/19/19 11:40 91 H 17 149/75 H 02/19/19 11:33 36.6 C 97 H 16 116/88 02/19/19 07:30 36.4 C L 72 20 145/81 H Pulse Ox 02/19/19 14:30 02/19/19 13:21 02/19/19 12:30 94 02/19/19 12:10 96 02/19/19 12:00 94 02/19/19 11:50 100 02/19/19 11:40 100 02/19/19 11:33 100 02/19/19 07:30 98 PG Care Time/CCT Total # of Minutes Spent Total Time Spent with Patient: Total time spent is greater than 50% in coordination of care (as documented) at patient's floor/unit and/or counseling patient:
--- NOTE | 2019-02-19 17:18 | Hospitalist Consultation ---
Date of Consultation February 19, 2019 Assessment & Plan (1) Degenerative joint disease of left hip: s/p ESTELITA 02/10 monitor for acute blood loss - cbc am Pain control, dvt proph per primary (2) Type 2 diabetes mellitus: hold linagliptin-metformin ss, bsgs ac & hs Last A1c 5.8 pharmacy glycemic management (3) BPH (benign prostatic hyperplasia): continue tamsulosin (4) Chronic obstructive pulmonary disease: Continue home albuterol, budesonide, arformoterol, anoro ellipta, roflumilast Supervising Physician Co-Signing Physician Notes I examined and seen Mr. rodriguez with JAJA Toussaint and agree with assessment and plan. History of Present Illness Attending Physician: Eben Sommers DO History of Present Illness Mr. Barcenas is post ESTELITA. His daughter is with him bedside. He feels good without any complaints. PMH: COPD, DMII, colon CA, BPH Social: lives with , quit smoking 9 years ago 100 pack year history, no alcohol, retired touch up painter Family: parents were both alcoholics and are Allergies Allergy/AdvReac Type Severity Reaction Status Date / Time No Known Drug Allergies Allergy Verified 02/19/19 07:15 Home Medications Home Medications Medication Instructions Recorded Confirmed Type Anoro Ellipta 1 inh INHALATION QPM 12/12/17 02/19/19 History albuterol sulfate [ProAir HFA] 2 puff INHALATION QID PRN 12/12/17 02/19/19 History albuterol sulfate [Ventolin HFA] 2 puff INHALATION BID PRN 12/12/17 02/19/19 History acetaminophen [Tylenol Extra 1,000 mg PO Q8H PRN #90 tab 11/01/18 02/19/19 Rx Strength] lancets 33 gauge #100 ea 11/27/18 02/01/19 History prednisone 20 mg tablet 20 mg PO DAILY PRN tab 11/27/18 02/19/19 History arformoterol 15 mcg/2 mL solution 2 ml INHALATION BID 11/28/18 02/19/19 History for nebulization linagliptin 2.5 mg-metformin 1,000 1 tab PO BID tab 11/30/18 02/19/19 History mg tablet roflumilast 500 mcg tablet 500 mcg PO QPM 11/30/18 02/19/19 History tamsulosin 0.4 mg capsule 0.4 mg PO HS cap 11/30/18 02/19/19 History OneTouch Verio strips #200 ea NS 12/27/18 02/01/19 Rx budesonide 0.25 mg/2 mL suspension 0.25 mg INHALATION UD PRN ml 01/22/19 02/19/19 History for nebulization ipratropium-albuterol 0.5 mg-3 3 ml INHALATION UD PRN ml 01/22/19 02/19/19 History mg(2.5 mg base)/3 mL nebulization soln lorazepam 0.5 mg tablet 0.5 mg PO BID tab 01/22/19 02/19/19 History simvastatin 20 mg tablet 20 mg PO QPM 01/22/19 02/19/19 History hydrocodone 5 mg-acetaminophen 325 1 tab PO BID PRN #60 tab 01/23/19 02/19/19 Rx mg tablet Patient History Medical History Anxiety Chronic obstructive pulmonary disease Chronic prostatitis Hypertension Neuroendocrine tumor s/p resection Sleep apnea Type 2 diabetes mellitus Asthma stable BPH (benign prostatic hyperplasia) Chronic back pain Chronic respiratory failure 2L O2 daytime plus 3L O2 HS-NC Diabetes mellitus, type 2 H/O malignant neoplasm of colon s/p hemicolectomy (2018) Hyperlipidemia Osteoarthritis Surgical History History of appendectomy History of arthroscopy LEFT KNEE History of bone graft STERNUM (2/2 TRAUMA) History of colonoscopy W/ POLYPECTOMY History of total hip arthroplasty Right ESTELITA: 11/01/18: SAB x 1 at L3-L4 at [facility] Hx of right hemicolectomy Family History Grandfather Family history of diabetes mellitus paternal Mother Alcohol abuse Respiratory disorder Asthma Father Alcohol abuse Brother Alcohol abuse Drug abuse Sister Anxiety Asthma Social History Preferred Language: [place] Communication Ability: Effective Visual Impairment: No Limitations Hearing Ability: Normal [employer] Required: No Beliefs That Will Affect Care: None marital status: Current Living Situation: Spouse current occupational status: retired Other Information That Helps Us Care for You: No Feels Safe at Home: Yes Safety Concerns: Feels Safe At This Time Smoking Status: Former smoker Tobacco Type: cigarettes ; Do You Dip or Chew Tobacco: No ; Smoking End Date: Quit 2010 ; Second Hand Exposure: No ; Tobacco Cessation Education Requested by Patient: No Hx Alcohol Use: No Hx Substance Use: No Dental Care, Regularly: No Physical Activity Frequency: Does not Exercise Review of Systems Constitutional: no fever, no chills and no body aches Respiratory: + dyspnea; no cough Cardiovascular: no chest pain, no palpitations and no lightheadedness Gastrointestinal: no nausea, no vomiting and no diarrhea/loose stools Genitourinary: + urinary frequency; no dysuria Musculoskeletal: no joint pain and no body aches Integumentary: no rash Physical Exam Physical Exam: General: no distress Eyes: normal inspection, PERLL Respiratory: chest non tender, clear to auscultation, normal breath sounds, no respiratory distress, no accessory muscle use Cardiac: regular rate and rhythm, no rub or gallop, no murmur, no edema, no jvd GI/: active bowel sounds, no abd pain or tenderness, soft, non distended Extremities: normal range of motion, normal strength, non tender Neuro: alert, moves all extremities Psych: oriented x 3, normal mood and affect Skin: normal color, dry Results & Data Vital Signs (Past 12 Hours) Vital Signs Temp Pulse Pulse Pulse Resp BP BP 02/19/19 15:28 36.5 C 104 H 18 150/83 H 02/19/19 14:30 97 H 16 148/84 H 02/19/19 13:21 98 H 18 147/83 H 02/19/19 12:30 36.6 C 101 H 15 142/78 H 02/19/19 12:10 37.0 C 94 H 20 111/91 02/19/19 12:00 96 H 18 132/84 02/19/19 11:50 90 17 137/77 02/19/19 11:40 91 H 17 149/75 H 02/19/19 11:33 36.6 C 97 H 16 116/88 02/19/19 07:30 36.4 C L 72 20 145/81 H Pulse Ox 02/19/19 15:28 95 02/19/19 14:30 02/19/19 13:21 02/19/19 12:30 94 02/19/19 12:10 96 02/19/19 12:00 94 02/19/19 11:50 100 02/19/19 11:40 100 02/19/19 11:33 100 02/19/19 07:30 98 PG Care Time/CCT Total # of Minutes Spent Total Time Spent with Patient: Total time spent is greater than 50% in coordination of care (as documented) at patient's floor/unit and/or counseling patient:
--- NOTE | 2019-02-19 17:53 | Orthopedic Progress Note ---
Date of Service February 19, 2019 Assessment & Plan (1) Degenerative joint disease of left hip: Status post left anterior total hip arthroplasty -Ancef/Vanco x24 -DVT prophylaxis: Teds, SCDs, Lovenox 40 mg daily -Weight-bear as tolerates left lower extremity -PT/OT -Postoperative x-ray demonstrates a well aligned well fixed orthopedic prosthesis without evidence of fracture dislocation. -Med consult appreciated -On home O2, 2 L during the day and 3 L at night. -A.m. lab -DC planning Subjective Post Operative Progress Note Patient seen sitting up in bed, comfortable, denies complaints, pain well controlled, no acute issues. Denies fevers, chills, nausea, vomiting, shortness of breath or chest pain. Review of Systems Review of Systems: All systems reviewed & are unremarkable except as noted in HPI & below Constitutional: as per Subjective / HPI Physical Exam Physical Exam: LLE NVSI +EHL/FHL/TA/GS SILT grossly, +2 DP pulse, compartments soft NT, dressing cdi. Constitutional: WD/WN, vitals as above Results & Data Vital Signs (Past 12 Hours) Vital Signs Temp Pulse Pulse Pulse Resp BP BP 02/19/19 15:28 36.5 C 104 H 18 150/83 H 02/19/19 14:30 97 H 16 148/84 H 02/19/19 13:21 98 H 18 147/83 H 02/19/19 12:30 36.6 C 101 H 15 142/78 H 02/19/19 12:10 37.0 C 94 H 20 111/91 02/19/19 12:00 96 H 18 132/84 02/19/19 11:50 90 17 137/77 02/19/19 11:40 91 H 17 149/75 H 02/19/19 11:33 36.6 C 97 H 16 116/88 02/19/19 07:30 36.4 C L 72 20 145/81 H Pulse Ox 02/19/19 15:28 95 02/19/19 14:30 02/19/19 13:21 02/19/19 12:30 94 02/19/19 12:10 96 02/19/19 12:00 94 02/19/19 11:50 100 02/19/19 11:40 100 02/19/19 11:33 100 02/19/19 07:30 98
[2019-02-19] MEDS: CEFAZOLIN 2000MG 2,000 MG/15 ML SYR IV SCH (17:56)
[2019-02-19] MEDS: ARFORMOTEROL TART 15MCG/2ML VIAL INH SCH (19:11)
[2019-02-19] MEDS ORDERED: SENNA 8.6 MG TAB PO SCH (21:00)
[2019-02-19] MEDS ORDERED: INSULIN ASPART 100 UNITS/ML 3 ML PEN SC SCH (21:00)
[2019-02-19] MEDS ORDERED: ROFLUMILAST 500 MCG TAB PO SCH (21:00)
[2019-02-19] MEDS ORDERED: TAMSULOSIN HCL 0.4 MG CAP PO SCH (21:00)
[2019-02-19] MEDS ORDERED: SIMVASTATIN 20 MG TAB PO SCH (21:00)
[2019-02-19] MEDS ORDERED: LORazepam 0.5 MG TAB PO PRN (21:00)
[2019-02-19] MEDS: DOCUSATE SODIUM 100 MG CAP PO SCH (21:20)
[2019-02-20] MEDS ORDERED: INSULIN ASPART 100 UNITS/ML 3 ML PEN SC SCH (02:00)
[2019-02-20] MEDS: CEFAZOLIN 2000MG 2,000 MG/15 ML SYR IV SCH (02:23)
[2019-02-20] MEDS: OXYCODONE HCL IR 5 MG TAB (IMMEDIATE RELEASE) PO PRN ×3 (02:33→13:49)
[2019-02-20 05:22] LABS: Eosinophils # (auto) 0.01 K/uL (0-0.5); Eosinophils % (auto) 0.1 %; Hematocrit (blood only) 38.1 % (42-52); Hemoglobin 12.5 g/dL (14.0-18.0); Immature Granulocytes # (auto) 0.05 K/uL (0.00-0.02); Immature Granulocytes % (auto) 0.3 %; Lymphocytes # (auto) 0.83 K/uL (1.2-3.4); Lymphocytes % (auto) 5.7 %; Mean Corpuscular Hemoglobin 26.7 pg (25-34); Mean Corpuscular Hgb Conc 32.8 g/dL (32-36); Mean Corpuscular Volume 81.2 fL (80-100); Mean Platelet Volume 10.2 fL (7.4-10.4); Monocytes # (auto) 1.77 K/uL (0.11-0.59); Monocytes % (auto) 12.1 %; Neutrophils # (auto) 12.02 K/uL (1.4-6.5); Neutrophils % (auto) 81.8 %; Platelet Count 181 K/uL (130-400); RDW Coefficient of Variation 14.5 % (11.5-14.5); RDW Standard Deviation 42.8 fL (36.4-46.3); Red Blood Count 4.69 M/uL (4.7-6.1); White Blood Count 14.68 K/uL (4.8-10.8)
[2019-02-20 05:51] LABS: BUN Creatinine Ratio 15.1 (10-20); Calcium 8.7 mg/dl (8.5-10.1); Creatinine Clr Calc Pharmacy 78.2 ml/min; Est GFR (African American) 89.2; Est GFR (Non-African American) 76.9; Potassium 3.9 mmol/L (3.5-5.1)
[2019-02-20] MEDS: ACETAMINOPHEN 500 MG TAB PO SCH ×2 (06:32→13:47)
[2019-02-20] MEDS: ARFORMOTEROL TART 15MCG/2ML VIAL INH SCH (07:09)
[2019-02-20] MEDS: INSULIN ASPART 100 UNITS/ML 3 ML PEN SC SCH ×2 (08:59→13:44)
[2019-02-20] MEDS ORDERED: ENOXAPARIN INJ 40 MG/0.4 ML SYR SQ SCH (09:00)
[2019-02-20] MEDS ORDERED: MULTIVITAMIN TAB PO SCH (09:00)
[2019-02-20] MEDS ORDERED: ESCITALOPRAM OXALATE 10 MG TAB PO SCH (09:00)
[2019-02-20] MEDS: DOCUSATE SODIUM 100 MG CAP PO SCH (09:01)
--- NOTE | 2019-02-20 09:42 | Hospitalist Progress Note ---
Date of Service February 20, 2019 Assessment & Plan (1) Degenerative joint disease of left hip: s/p ESTELITA 02/10 monitor for acute blood loss - hgb decreased 1.5g from yesterday Pain control, dvt proph per primary Patient given script for raised toilet seat (2) Type 2 diabetes mellitus: hold linagliptin-metformin while inpatient, resume at discharge ss, bsgs ac & hs Last A1c 5.8 pharmacy glycemic management (3) BPH (benign prostatic hyperplasia): continue tamsulosin (4) Chronic obstructive pulmonary disease: Continue home albuterol, budesonide, arformoterol, anoro ellipta, roflumilast Medicine will sign off. Please let us know if we can answer any questions Supervising Physician Co-Signing Physician Notes I examined and seen patient with JJAA Toussaint and agree with assessment and plan. Subjective Mr. Barcenas feels well, up to a chair, no complaints. He is looking forward to going home ROS Constitutional: no chills, aches, sweats or fever Respiratory: no sob,cough, sputum, or wheezing Cardiac: no chest pain, palpitations, edema, orthopnea or lightheadedness GI: no abdominal pain, nausea, vomiting, diarrhea or constipation : no dysuria or hesitancy Extremities: no joint pain or weakness Skin: no rash All other systems reviewed and negative Physical Exam Physical Exam: General: no distress Eyes: normal inspection, PERLL Respiratory: chest non tender, clear to auscultation, normal breath sounds, no respiratory distress, no accessory muscle use Cardiac: regular rate and rhythm, no rub or gallop, no murmur, no edema, no jvd GI/: active bowel sounds, no abd pain or tenderness, soft, non distended Extremities: normal range of motion, normal strength, non tender Neuro/Psych: alert and oriented x 3, normal mood and affect Skin: normal color, dry Results & Data Vital Signs (Past 12 Hours) Vital Signs Temp Pulse Resp BP Pulse Ox 02/20/19 07:37 36.7 C 74 16 139/77 98 02/20/19 07:09 96 H 16 95 02/20/19 03:05 36.6 C 66 16 105/63 98 02/19/19 22:58 36.5 C 83 16 116/67 95 PG Care Time/CCT Total # of Minutes Spent Total Time Spent with Patient: Total time spent is greater than 50% in coordination of care (as documented) at patient's floor/unit and/or counseling patient:
--- NOTE | 2019-02-20 10:10 | Pharmacy Report ---
Pharmacy Glycemic Short Note 2 - Date of Service February 20, 2019 - Glycemic Short BSG Results (Last 24 hours): 02/19/19 02/19/19 02/19/19 11:39 12:36 17:23 Glucose POC Glucose 159 H 170 H 169 H 02/19/19 02/20/19 02/20/19 20:45 02:19 04:50 Glucose 153 H POC Glucose 193 H 144 H 02/20/19 08:10 Glucose POC Glucose 151 H Outpatient Anti-diabetic Regimen: * Linagliptin/metformin 2.5 mg/1000 mg PO BIDM * A1c = 5.8 % (01/16/19) ASSESSMENT: 02/20 * Patient is now POD #1 s/p left total hip arthroplasty * BSGs yesterday ranging 126-193 mg/dL * Dexamethasone 8 mg PO + orthomix given * Patient received 16 units of insulin yesterday * Fasting BSG this morning is 151 mg/dL (dexamethasone likely still affecting this BSG) * Will loosen CF/CR after breakfast 02/19: * FM is a 64 year old male POD #0 s/p left total hip arthroplasty * Patient received 8 mg PO dexamethasone in the OR + intra-articular ortho mix * BSGs so far today ranging 126-170 mg/dL * PMH includes type 2 DM, hyperlipidemia, BPH, asthma, COPD, BETZY, hypertension, anxiety, etc. PLAN FOR INPATIENT GLYCEMIC CONTROL: * Pt is maintained on oral antidiabetic agents as an outpatient * Oral agents are not recommended for inpatient use d/t drug interactions, changing PO intake, and difficulty titrating for acute hyper/hypoglycemia. ADA recommends re-initiating outpatient oral agents 1-2 days prior to discharge if/when appropriate if they were held on admission. * Will hold oral agents for admission and utilize SQ bolus insulin regimen * Will initiate weight based insulin dosing for insulin roseanna patient and titrate based on BSG trends. * Will continue to hold basal insulin based on A1c of 5.8% * Bolus insulin - loosen parameters after breakfast * NovoLog per scale ACHS or Q6hrs while NPO * Goal Range: Low 110 mg/dL - High 140 mg/dL * Correction Factor: 30 mg/dL/unit * Nutritional / Prandial insulin per carb ratio of 1 unit per 10 grams CHO consumed PLAN FOR DISCHARGE: * Patient is well-controlled on home regimen based on A1c of 5.8% * Continue linagliptin/metformin 2.5 mg/1000 mg PO BID
--- NOTE | 2019-02-20 11:07 | Orthopedic Progress Note ---
Date of Service February 20, 2019 Assessment & Plan (1) Degenerative joint disease of left hip: Status post left anterior total hip arthroplasty POD#1 -Ancef/Vanco x24 -DVT prophylaxis: Teds, SCDs, Lovenox 40 mg daily -Weight-bear as tolerates left lower extremity -PT/OT -Postoperative x-ray demonstrates a well aligned well fixed orthopedic prosthesis without evidence of fracture dislocation. -Med consult appreciated -On home O2, 2 L during the day and 3 L at night. -A.m. lab - hgb 12.5 -DC planning - Home with HH Subjective Post Operative Progress Note Patient seen sitting in chair at bedside, comfortable, denies complaints, pain well controlled, no acute issues. Denies F/C/N/V/SOB/CP Review of Systems Review of Systems: All systems reviewed & are unremarkable except as noted in HPI & below Constitutional: as per Subjective / HPI Physical Exam Physical Exam: LLE NVSI +EHL/FHL/TA/GS SILT grossly, +2 DP pulse, compartments soft NT, dressing cdi. Constitutional: WD/WN, vitals as above Results & Data Vital Signs (Past 12 Hours) Vital Signs Temp Pulse Resp BP Pulse Ox 02/20/19 07:37 36.7 C 74 16 139/77 98 02/20/19 07:09 96 H 16 95 02/20/19 03:05 36.6 C 66 16 105/63 98 Laboratory Results 02/20/19 02/20/19 02/20/19 Range/Units 08:10 04:50 04:50 WBC 14.68 H (4.8-10.8) K/uL RBC 4.69 L (4.7-6.1) M/uL Hgb 12.5 L (14.0-18.0) g/dL Hct 38.1 L (42-52) % MCV 81.2 (80-100) fL MCH 26.7 (25-34) pg MCHC 32.8 (32-36) g/dL RDW Std Deviation 42.8 (36.4-46.3) fL RDW Coeff of Veena 14.5 (11.5-14.5) % Plt Count 181 (130-400) K/uL MPV 10.2 (7.4-10.4) fL Immature Gran % (Auto) 0.3 % Neut % (Auto) 81.8 % Lymph % (Auto) 5.7 % [place] % (Auto) 12.1 % Eos % (Auto) 0.1 % Baso % (Auto) 0.0 % Immature Gran # (Auto) 0.05 H (0.00-0.02) K/uL Neut # (Auto) 12.02 H (1.4-6.5) K/uL Lymph # (Auto) 0.83 L (1.2-3.4) K/uL [place] # (Auto) 1.77 H (0.11-0.59) K/uL Eos # (Auto) 0.01 (0-0.5) K/uL Baso # (Auto) 0.00 (0-0.2) K/uL Sodium 137 (136-145) mmol/L Potassium 3.9 (3.5-5.1) mmol/L Chloride 104 (98-107) mmol/L Carbon Dioxide 27 (21-32) mmol/L Anion Gap 6.0 (3-11) BUN 16 (7-18) mg/dl Creatinine 1.03 (0.6-1.4) mg/dl Est Cr Clr Drug Dosing 78.2 ml/min Est GFR ( Amer) 89.2 Est GFR (Non-Af Amer) 76.9 BUN/Creatinine Ratio 15.1 (10-20) Glucose 153 H (70-99) mg/dl POC Glucose 151 H (70-99) Calcium 8.7 (8.5-10.1) mg/dl 02/20/19 02/19/19 02/19/19 Range/Units 02:19 20:45 17:23 WBC (4.8-10.8) K/uL RBC (4.7-6.1) M/uL Hgb (14.0-18.0) g/dL Hct (42-52) % MCV (80-100) fL MCH (25-34) pg MCHC (32-36) g/dL RDW Std Deviation (36.4-46.3) fL RDW Coeff of Veena (11.5-14.5) % Plt Count (130-400) K/uL MPV (7.4-10.4) fL Immature Gran % (Auto) % Neut % (Auto) % Lymph % (Auto) % [place] % (Auto) % Eos % (Auto) % Baso % (Auto) % Immature Gran # (Auto) (0.00-0.02) K/uL Neut # (Auto) (1.4-6.5) K/uL Lymph # (Auto) (1.2-3.4) K/uL [place] # (Auto) (0.11-0.59) K/uL Eos # (Auto) (0-0.5) K/uL Baso # (Auto) (0-0.2) K/uL Sodium (136-145) mmol/L Potassium (3.5-5.1) mmol/L Chloride (98-107) mmol/L Carbon Dioxide (21-32) mmol/L Anion Gap (3-11) BUN (7-18) mg/dl Creatinine (0.6-1.4) mg/dl Est Cr Clr Drug Dosing ml/min Est GFR ( Amer) Est GFR (Non-Af Amer) BUN/Creatinine Ratio (10-20) Glucose (70-99) mg/dl POC Glucose 144 H 193 H 169 H (70-99) Calcium (8.5-10.1) mg/dl 02/19/19 02/19/19 Range/Units 12:36 11:39 WBC (4.8-10.8) K/uL RBC (4.7-6.1) M/uL Hgb (14.0-18.0) g/dL Hct (42-52) % MCV (80-100) fL MCH (25-34) pg MCHC (32-36) g/dL RDW Std Deviation (36.4-46.3) fL RDW Coeff of Veena (11.5-14.5) % Plt Count (130-400) K/uL MPV (7.4-10.4) fL Immature Gran % (Auto) % Neut % (Auto) % Lymph % (Auto) % [place] % (Auto) % Eos % (Auto) % Baso % (Auto) % Immature Gran # (Auto) (0.00-0.02) K/uL Neut # (Auto) (1.4-6.5) K/uL Lymph # (Auto) (1.2-3.4) K/uL [place] # (Auto) (0.11-0.59) K/uL Eos # (Auto) (0-0.5) K/uL Baso # (Auto) (0-0.2) K/uL Sodium (136-145) mmol/L Potassium (3.5-5.1) mmol/L Chloride (98-107) mmol/L Carbon Dioxide (21-32) mmol/L Anion Gap (3-11) BUN (7-18) mg/dl Creatinine (0.6-1.4) mg/dl Est Cr Clr Drug Dosing ml/min Est GFR ( Amer) Est GFR (Non-Af Amer) BUN/Creatinine Ratio (10-20) Glucose (70-99) mg/dl POC Glucose 170 H 159 H (70-99) Calcium (8.5-10.1) mg/dl
--- NOTE | 2019-02-20 22:10 | Discharge Summary ---
Date of Service February 20, 2019 Admission HPI Per Admitting Provider The patient is a 61 year old male who presents with complaints of severe left hip pain and DJD. The patient has failed outpatient conservative treatments to this point which included NSAIDs, corticosteroid injection, PT/home exercise/walking program. The patient's pain and limited function have progressed to the point where they severely hinder their activities of daily living and they no longer tolerate exercise programs. They are requesting to proceed with total hip replacement surgery. Principal Diagnosis Left anterior total hip replacement Discharge Exam LLE NVSI +EHL/FHL/TA/GS SILT grossly, +2 DP pulse, compartments soft NT, dressing cdi. Constitutional WD/WN, vitals as above Discharge Data Allergies Allergy/AdvReac Type Severity Reaction Status Date / Time No Known Drug Allergies Allergy Verified 02/19/19 07:15 Consultations 02/19/19 12:40 Consult Internal Medicine Routine 02/20/19 08:00 Consult Case Management - Discharge Planning Routine Procedures Performed Operation Date: 02/19/19 09:05 Actual Procedures p Left Anterior Total Hip Arthroplasty(Left) - Eben Sommers DO Ordered Studies 02/19/19 09:05 FL fluoroscopy <1hr Routine FL hip LT 1V Routine Hospital Course (1) Degenerative joint disease of left hip: The patient is a 64 -year-old male who presents with long standing history of severe left hip DJD and failed outpatient conservative treatments including NSAIDs, bracing, injections and home walking/exercise program. The patient's symptoms have progressed to the point where it has been difficult to perform even normal activities of daily living. I indicated the patient for a left anterior total hip arthroplasty, the risks, benefits and complications of the procedure include but not limited to infection, bleeding, damage to bone, nerves, vessels, surrounding soft tissue, may develop blood clots, loss of function, leg length discrepancy, dislocation, failure of the components, loosening of the components, the need for additional surgery and . The patient wished to proceed with surgery at this time and informed consent was obtained. Hospital Course: On 02/19/19 the patient was taken to the operating room, adequate anesthesia administered and underwent a left anterior total hip arthroplasty. The patient tolerated the procedure well and was taken to the PACU in stable condition. Post-operatively the patient was started on a DVT ppx medication and given appropriate IV antibiotics. Consults were placed to medical hospitalist, ph ysical therapy, occupational therapy and case management. On POD#1, the patient did well overnight and their pain was well controlled. Labs were drawn and the Hgb was 12.5. The patient progressed well with PT. Dressings were changed at this time and the incision was clean, dry and intact. The patients hospital stay was relatively uneventful and they were deemed stable by the orthopedic team and consultants to be discharged home with HH on 02/20/19. Discharge Instructions: Upon discharge the patient may weight bear as tolerates through their operative extremity. They were instructed to keep the incision clean and dry at all times. The patient may shower but should not submerge the incision, avoid bathing, pools and hot tubes. The patient was given a script for pain medication and should take as instructed. The patient was given a script for DVT ppx Lovenox 40mg daily and should take as directed. The patient was instructed to not drive or travel for long distances until cleared to do so. If the patient develops any symptoms of fevers, chills, nausea, vomiting, increased redness, swelling, pain or drainage from the surgical site, they should notify the office and/or proceed to the nearest emergency room. The patient should follow up in 10-14 days after surgery for their routine post-operative follow-up appointment and should call the office to confirm the date and time. Status post left anterior total hip arthroplasty POD#1 -Ancef/Vanco x24 -DVT prophylaxis: Teds, SCDs, Lovenox 40 mg daily -Weight-bear as tolerates left lower extremity -PT/OT -Postoperative x-ray demonstrates a well aligned well fixed orthopedic prosthesis without evidence of fracture dislocation. -Med consult appreciated -On home O2, 2 L during the day and 3 L at night. -A.m. lab - hgb 12.5 -DC planning - Home with HH Total Time Total Time Spent Total Time Spent (In Minutes): 30 minutes Total Time Includes: Examination of the Patient, Discharge Planning, Medication Reconciliation and Communication With Other Providers Discharge Plan Discharge Items Patient Disposition: Home - Home Health Services Reason For Visit: Unilateral Primary Osteoarthritis, Left Hip Discharge Diagnosis: Left anterior total hip replacement Condition on Discharge: Good Activity: Per Instructions section Lifting: Wait until after follow-up appointment Bathing: Keep incision dry Bathing Comment: No bathing, pools or hot tubs. Sexual Activity: Wait until after follow-up appointment Exercise/Sports: Wait until after follow-up appointment Driving/Machine Use: No driving. Weightbearing: Full weightbearing Non-emergency contact: Primary Care Provider and Surgeon Call non-emergency contact if: you have any medication questions, your symptoms worsen, your pain is not controlled, your pain is worsening, your pain is unusual for you, your pain is concerning for you, you have a fever, your temperature is above 101, your wound has increased redness, your wound has increased drainage and your wound pain has increased Follow-up/Referrals: Frank Dutta MD [Primary Care Provider] - Diet: Carb Consistent or DM2 Addtl Attending Provider Instructions: ACTIVITY RECOMMENDATIONS: SELF CARE INSTRUCTIONS AFTER TOTAL HIP REPLACEMENT : Direct Anterior Approach Until the incision and soft tissues around your hip have healed, there is a possibility that the hip prosthesis could dislocate. A. Hip flexion ( Up & Down out of chair or steps ) may be difficult. This is normal. B. Numbness in front of the thigh is also normal for a few weeks. C. Use hand rails when walking on stairs. D. Wear low heeled shoes with non-slip soles. E. Be sure that your floors are free of things that could trip you - throw rugs, electrical cords, small objects. Avoid wet and waxed floors, especially with crutches and canes. F. Try to walk several times a day with rest periods between. G. Continue with all the exercises taught to you in the hospital. Again, make walking a part of your daily routine. SPECIAL CARE INSTRUCTIONS: VERY IMPORTANT TO READ AND REVIEW A. You may still be at risk for phlebitis and blood clots. 1. Wear surgical stockings (LOKI hose) for 2 weeks after surgery to improve circulation and reduce swelling. 2. Take Lovenox 40mg daily for 4 weeks or as directed by your doctor. This is your blood thinner. 3. High risk patients may be prescribed a stronger blood thinner if necessary. 4. If you are on Coumadin normally, your family doctor/sorting and folding supervisor should monitor your blood work. Expect a phone call the day of or the day after bloodwork is drawn to adjust your dosage. B. You must take antibiotics before having dental work, bladder, bowel and other surgery. Your doctor will provide you with a permanent card to carry describing precautions. C. Call [facility] if you have a fever, redness or swelling around the incision, cloudy drainage from incision, or sudden increase in pain in your hip, not relieved by your regular pain medication. D. Please call the office at if you have any concerns or questions about your operation or recovery. * YOU MAY SHOWER, NO TUB BATHS UNTIL CLEARED BY YOUR DOCTOR. - Keep an extra close eye on the top portion of your incision. Be sure to keep clean & dry. * WEAR LOKI HOSE 20 HOURS PER DAY FOR 2 WEEKS. * YOU MAY PROGRESS FROM A WALKER, TO A CANE, TO INDEPENDENT AT YOUR OWN PACE. * MOST PATIENTS WILL HAVE HOME NURSING FOR THERAPY. IF YOU DECIDE TO DO OUTPATIENT PHYSICAL THERAPY, PLEASE SCHEDULE THIS 3 TIMES PER WEEK. * DERMABOND Prineo- This is a mesh tape dressing that is covered with glue. It should remain in place until the incision is properly healed, usually 10-14 days. This dressing is designed to naturally slough off. You may trim the exc ess mesh tape as it peels off. Incision may be briefly wet in a shower. Dry immediately by blotting with a clean, dry towel. Do not bath or swim until instructed by your doctor. Do not scratch, rub, or pick at the dressing. Do not apply any topical ointments or lotions until dressing is completely removed and/or instructed by your doctor. There may be a small piece of suture material at one end of your incision. Do not pull or trim this. If it is bothersome or catching on clothing, you may cover it with a band-aid. FOLLOW UP VISIT: If appointment is not already scheduled: Please call [facility] to make a follow-up appointment for 2 weeks after your surgery at . Pending Studies at Discharge: No Stand-Alone Forms: My [employer], Opioid Pain Management, Smoking Cessation Medications and DC Order Prescriptions: New acetaminophen [Tylenol Extra Strength] 500 mg Tablet 1,000 mg PO Q8 PRN (Reason: pain/inflammation) Qty: 90 RF: 0 oxycodone 5 mg Tablet 5 mg PO Q6H MDD 6 tabs PRN (Reason: pain) Qty: 30 RF: 0 enoxaparin 40 mg/0.4 mL Syringe 40 mg subcut Q24H 28 Days Qty: 28 RF: 0 sennosides [Senokot] 8.6 mg Tablet 17.2 mg PO HS PRN (Reason: constipation) Qty: 28 RF: 0 Continued OneTouch Verio strip .ROUTE .MEDSUPPLY Qty: 200 RF: 3 lancets [OneTouch Delica Lancets] 33 gauge misc .ROUTE .MEDSUPPLY Qty: 100 RF: 0 prednisone 20 mg tablet 20 mg PO DAILY PRN (Reason: Cold Symptoms) RF: 0 Jentadueto 2.5-1,000 mg tablet 1 tab PO BID RF: 0 tamsulosin 0.4 mg capsule 0.4 mg PO HS RF: 0 budesonide 0.25 mg/2 mL suspension for nebulization 0.25 mg inhalation UD PRN (Reason: SHORT OF BREATH) RF: 0 ipratropium-albuterol 0.5 mg-3 mg(2.5 mg base)/3 mL solution for nebulization 3 ml inhalation UD PRN (Reason: SHORT OF BREATH) RF: 0 simvastatin 20 mg tablet 20 mg PO QPM RF: 0 albuterol sulfate [ProAir HFA] 90 mcg/actuation Hfa Aerosol Inhaler 2 puff INHALATION QID PRN (Reason: SOB) RF: 0 albuterol sulfate [Ventolin HFA] 90 mcg/actuation Hfa Aerosol Inhaler 2 puff INHALATION BID PRN (Reason: SOB) RF: 0 Anoro Ellipta 62.5-25 mcg/actuation Blister With Device 1 inh INHALATION QPM RF: 0 Brovana 15 mcg/2 mL solution for nebulization 2 ml INHALATION BID RF: 0 Daliresp 500 mcg tablet 500 mcg PO QPM RF: 0 lorazepam [Ativan] 0.5 mg tablet 0.5 mg PO BID RF: 0 Discontinued hydrocodone-acetaminophen 5-325 mg tablet 1 tab PO BID PRN (Reason: pain) Qty: 60 RF: 0 acetaminophen [Tylenol Extra Strength] 500 mg Tablet 1,000 mg PO Q8H PRN (Reason: fever or pain) Qty: 90 RF: 0 Discharge Orders: Discharge Order (Routine); Ordered 02/20/19 Ordered By: Eben Peña/Other Patient Handouts: Surgery Prevent DVT After Admission Data Admit Date/Time: 02/19/19 11:26 Attending Provider: Eben Sommers Admit Provider: Eben Sommers Primary Care Provider: Frank Dutta Other Providers: Liu Matthew Other Interventions: Discharge Summary Assessment (RN) Last Done: 02/20/19 11:53 DC Date/Time DO NOT enter until pt leaves facility: 02/20/19 14:18
== END 2019-02-20 14:18 | disposition home health service (06) | DRG 470 ==
LOC: ASU 06:07 → 3E 11:26